=== PATIENT | male | born 1950 | race Caucasian/White ===

== ENCOUNTER 2017-12-14 13:06 | Inpatient (IN) | payer MEDICARE ==
--- NOTE | 2017-12-14 14:12 | ED ---
General Adult HPI <VanJose - Last Filed: 12/14/17 16:48> - General Source: patient, RN notes reviewed Mode of arrival: EMS <Zach Cohen - Last Filed: 12/14/17 16:57> - General Chief complaint: Fall Stated complaint: Fall Time Seen by Provider: 12/14/17 13:30 - History of Present Illness Initial comments: Patient 67-year-old male presented to the emergency room today by EMS, the chief complaint of fall occurred just prior to arrival. He does admit that he was walking out of a store when he got tripped up over his feet lose his balance falling forward and hitting a pole in the parking lot. Patient is with pain to left hip, left shoulder. Patient has mid to headache. He does admit that he is on a blood thinner of Plavix. Patient denies any loss consciousness. He states pain is worse with movements of the left hip, left shoulder. Denies any other complaints. Patient denies any recent fever, chills , shortness of breath, chest pain, back pain, abdominal pain, constipation or diarrhea, visual changes, or any other complaints. (Zach Cohen) - Related Data Home Medications Medication Instructions Recorded Confirmed Atorvastatin Calcium [Lipitor] 40 mg PO HS 12/14/17 12/14/17 Carbidopa-Levodopa 25-100 mg 1 tab PO DAILY@1200 12/14/17 12/14/17 [Sinemet 25-100 mg] Carbidopa-Levodopa 25-100 mg 2 tab PO BID 12/14/17 12/14/17 [Sinemet 25-100 mg] Carvedilol [Coreg] 6.25 mg PO BID 12/14/17 12/14/17 Clopidogrel [Plavix] 75 mg PO DAILY 12/14/17 12/14/17 Gabapentin [Neurontin] 300 mg PO TID 12/14/17 12/14/17 Insulin NPH Hum/Reg Insulin Hm 60 unit SQ BID 12/14/17 12/14/17 [Novolin 70-30 100 Unit/ml Vial] Isosorbide Mononitrate ER [Imdur] 30 mg PO DAILY 12/14/17 12/14/17 Lisinopril [Zestril] 20 mg PO DAILY 12/14/17 12/14/17 Venlafaxine HCl ER [Effexor XR] 75 mg PO HS 12/14/17 12/14/17 Venlafaxine HCl ER [Effexor XR] 150 mg PO QAM 12/14/17 12/14/17 metFORMIN HCL 1,000 mg PO AC-BID 12/14/17 12/14/17 Allergies Allergy/AdvReac Type Severity Reaction Status Date / Time No Known Allergies Allergy Verified 12/14/17 13:46 Review of Systems ROS Other: All systems not noted in ROS Statement are negative. <Jose Van - Last Filed: 12/14/17 16:48> ROS Other: All systems not noted in ROS Statement are negative. <Zach Cohen - Last Filed: 12/14/17 16:57> ROS Statement: Those systems with pertinent positive or pertinent negative responses have been documented in the HPI. Past Medical History Past Medical History: Coronary Artery Disease (CAD), Heart Failure, COPD, Dementia, Diabetes Mellitus, Hearing Disorder / Deafness, Hypertension, Myocardial Infarction ([place]), Sleep Apnea/CPAP/BIPAP Additional Past Medical History / Comment(s): parkinsons History of Any Multi-Drug Resistant Organisms: None Reported Past Surgical History: Coronary Bypass/CABG Past Psychological History: No Psychological Hx Reported Smoking Status: Current every day smoker Past Alcohol Use History: None Reported Past Drug Use History: None Reported <Zach Cohen - Last Filed: 12/14/17 16:57> General Exam <Jose Van - Last Filed: 12/14/17 16:48> <Zach Cohen - Last Filed: 12/14/17 16:57> - General Exam Comments Initial Comments: General: The patient is awake and alert, in no distress, and does not appear acutely ill. Eye: Pupils are equal, round and reactive to light. Extra-ocular movements are intact. No nystagmus. There is normal conjunctiva bilaterally. No signs of icterus. Ears, nose, mouth and throat: There are moist mucous membranes and no oral lesions. Neck: The neck is supple, there is no tenderness or JVD. Cardiovascular: There is a regular rate and rhythm. No murmur, rub or gallop is appreciated. Respiratory: Lungs are clear to auscultation, respirations are non-labored, breath sounds are equal. No wheezes, stridor, rales, or rhonchi. Gastrointestinal: Soft, non-distended, non-tender abdomen without masses or organomegaly noted. There is no rebound or guarding present. No CVA tenderness. Musculoskeletal: Good range of motion of the left shoulder. Mild tenderness over the lateral anterior aspect. The parents elected not obvious deformity. Patient does have tenderness over the lateral aspect. Tenderness increased with logroll maneuver. Sensation intact. Pulses equal bilaterally 2+. Neurological: A&O x 3. CN II-XII intact, There are no obvious motor or sensory deficits. Coordination appears grossly intact. Speech is normal. Skin: Skin is warm and dry and no rashes or lesions are noted. Psychiatric: Cooperative, appropriate mood & affect, normal judgment. (Zach Cohen) Course <Jose Van - Last Filed: 12/14/17 16:48> <Zach Cohen - Last Filed: 12/14/17 16:57> Vital Signs 12/14/17 12/14/17 13:15 15:44 Temperature 97.8 F 97.7 F Pulse Rate 65 59 L Respiratory 18 18 Rate Blood Pressure 122/88 126/64 O2 Sat by Pulse 95 92 L Oximetry - Reevaluation(s) Reevaluation #1: 12/14/17 16:11 Patient reevaluated by myself, Dr. Van. Orthopedics has been paged. Patient did have a trip and fall. Patient has tenderness left anterior hip. Distally the extremity is neurovascular intact. X-ray concerning for femoral neck fracture. (Jose Van) Medical Decision Making - Lab Data Result diagrams: 12/14/17 14:53 12/14/17 14:53 <Jose Van - Last Filed: 12/14/17 16:48> - Lab Data Result diagrams: 12/14/17 14:53 12/14/17 14:53 <Zach Cohen - Last Filed: 12/14/17 16:57> - Medical Decision Making Patient's CT of the head and neck negative for any acute abnormality. Patient' s x-ray of the left shoulder is negative. X-ray of the left hip does show a femoral neck fracture. Patient has no orthopedic doctor. Case was discussed with orthopedic physician plumber assistant on-call Estevan Goddard who will accept patient for Dr. Colin. Patient does have a out of town family physician and will have on-call hospitalist consult for medical clearance for surgery. Patient will be made nothing by mouth after midnight for chance of surgery tomorrow morning. (Zach Cohen) - Lab Data Lab Results 12/14/17 12/14/17 12/14/17 Range/Units 14:53 14:53 14:53 WBC 8.5 (3.8-10.6) k/uL RBC 4.52 (4.30-5.90) m/uL Hgb 13.8 (13.0-17.5) gm/dL Hct 41.4 (39.0-53.0) % MCV 91.7 (80.0-100.0) fL MCH 30.5 (25.0-35.0) pg MCHC 33.2 (31.0-37.0) g/dL RDW 13.4 (11.5-15.5) % Plt Count 233 (150-450) k/uL Neutrophils % 75 % Lymphocytes % 16 % Monocytes % 6 % Eosinophils % 2 % Basophils % 1 % Neutrophils # 6.4 (1.3-7.7) k/uL Lymphocytes # 1.4 (1.0-4.8) k/uL Monocytes # 0.5 (0-1.0) k/uL Eosinophils # 0.2 (0-0.7) k/uL Basophils # 0.0 (0-0.2) k/uL PT 10.1 (9.0-12.0) sec INR 1.0 (<1.2) APTT 24.0 (22.0-30.0) sec Sodium 139 (137-145) mmol/L Potassium 4.0 (3.5-5.1) mmol/L Chloride 105 (98-107) mmol/L Carbon Dioxide 28 (22-30) mmol/L Anion Gap 6 mmol/L BUN 12 (9-20) mg/dL Creatinine 0.58 L (0.66-1.25) mg/dL Est GFR (CKD-EPI)AfAm >90 (>60 ml/min/1.73 sqM) Est GFR (CKD-EPI)NonAf >90 (>60 ml/min/1.73 sqM) Glucose 100 H (74-99) mg/dL Calcium 9.1 (8.4-10.2) mg/dL Total Bilirubin 0.3 (0.2-1.3) mg/dL AST 16 L (17-59) U/L ALT 22 (21-72) U/L Alkaline Phosphatase 76 (38-126) U/L Total Protein 5.9 L (6.3-8.2) g/dL Albumin 3.4 L (3.5-5.0) g/dL Disposition <Jose Van - Last Filed: 12/14/17 16:48> Is patient prescribed a controlled substance at d/c from ED?: No Time of Disposition: 16:57 <Zach Cohen - Last Filed: 12/14/17 16:57> Clinical Impression: Hip fracture, Fall Disposition: ADMITTED IP TO THIS [facility] Condition: Stable Instructions: Hip Fracture (ED) Referrals: None,Stated [REFERRING] - 1-2 days
--- NOTE | 2017-12-14 14:31 | CT ---
EXAMINATION TYPE: CT brain ayanna coleman DATE OF EXAM: 12/14/2017 COMPARISON: None HISTORY: Pain CT DLP: 1364.[address] of the brain was performed. The ventricles, basal cisterns and sulci overlying the cerebral convexities demonstrate mild enlargem ent. There is no evidence for intracranial hemorrhage or sulcal effacement. There is decreased attenuatio n about the periventricular white matter and deep white matter of both cerebral hemispheres, compatib le with chronic small vessel ischemia. No mass effects are seen. If symptoms persist consider MRI. Osseous calvarium is intact. IMPRESSION: 1. Age related atrophic and chronic small vessel ischemic change without acute intracranial process seen at this time. CT Cervical Spine: Unenhanced CT of the cervical spine was performed with bone and soft tissue window settings submitted . Coronal and sagittal reconstruction is obtained. There is normal alignment and prevertebral soft tissues. No evidence for acute cervical fracture . Scattered degenerative disc disease and spondylosis. Biapical scarring. IMPRESSION: 1. No evidence for acute fracture or subluxation of the cervical spine.
[2017-12-14] MEDS ORDERED: SODIUM CHLORIDE 0.9% 1,000 ML IV STA (14:38)
[2017-12-14] MEDS ORDERED: MORPHINE SULFATE 4 MG/ML SYRINGE IV STA (14:39)
[2017-12-14] MEDS ORDERED: ONDANSETRON 4 MG/2 ML VIAL IVP STA (14:39)
--- NOTE | 2017-12-14 14:53 | XR ---
EXAMINATION TYPE: AP view pelvis and 2 views left hip DATE OF EXAM: 12/14/2017 COMPARISON: NONE HISTORY: 67-year-old male pain and limited range of motion after fall FINDINGS: Mild degenerative change of both hips. There is an impacted and mildly angulated and externally rotat ed fracture of the left femoral neck. This appears to be a transcervical fracture versus subcapital f racture. IMPRESSION: Impacted, externally rotated, and slightly angulated subcapital versus transcervical femoral neck fra cture.
--- NOTE | 2017-12-14 14:54 | XR ---
EXAMINATION TYPE: XR shoulder complete LT DATE OF EXAM: 12/14/2017 COMPARISON: NONE HISTORY: 67-year-old male with pain and limited range of motion after fall today TECHNIQUE: 3 views FINDINGS: Mild degenerative joint space narrowing and marginal spurring at the AC joint. Subacromial space is p reserved. No acute fracture, subluxation, or dislocation seen. Median sternotomy wires with post-CABG clips. IMPRESSION: No acute osseous abnormality seen.
[2017-12-14 15:11] LABS: Basophils % (A) 1 %; Eosinophils # (A) 0.2 k/uL (0-0.7); Eosinophils % (A) 2 %; HCT 41.4 % (39.0-53.0); HGB 13.8 gm/dL (13.0-17.5); Lymphocytes # (A) 1.4 k/uL (1.0-4.8); Lymphocytes % (A) 16 %; MCH 30.5 pg (25.0-35.0); MCHC 33.2 g/dL (31.0-37.0); MCV 91.7 fL (80.0-100.0); Mean Platelet Volume 6.8; Monocytes # (A) 0.5 k/uL (0-1.0); Monocytes % (A) 6 %; Neutrophils # (A) 6.4 k/uL (1.3-7.7); Neutrophils % (A) 75 %; Platelet Count 233 k/uL (150-450); RBC 4.52 m/uL (4.30-5.90); RDW 13.4 % (11.5-15.5); WBC 8.5 k/uL (3.8-10.6)
[2017-12-14 15:20] LABS: Prothrombin Time 10.1 sec (9.0-12.0)
[2017-12-14 15:21] LABS: ALT 22 U/L (21-72); AST 16 U/L (17-59); Albumin 3.4 g/dL (3.5-5.0); Alkaline Phosphatase 76 U/L (38-126); Anion Gap 6 mmol/L; Blood Urea Nitrogen 12 mg/dL (9-20); Calcium 9.1 mg/dL (8.4-10.2); Carbon Dioxide 28 mmol/L (22-30); Chloride 105 mmol/L (98-107); Glucose 100 mg/dL (74-99); Sodium 139 mmol/L (137-145); Total Bilirubin 0.3 mg/dL (0.2-1.3); Total Protein 5.9 g/dL (6.3-8.2)
--- NOTE | 2017-12-14 15:28 | XR ---
EXAMINATION TYPE: XR chest 1V DATE OF EXAM: 12/14/2017 COMPARISON: 04/14/2012 HISTORY: -year-old male with pain in left hip fracture TECHNIQUE: Single frontal view of the chest is obtained. FINDINGS: Heart upper limits of normal in size. Median sternotomy wires are present with post-CABG clips in the mediastinum. Focal left basilar opacity was present back in 2013. Mild diffuse interstitial prominen ce is unchanged. No significant pleural effusion seen. IMPRESSION: Stable pleural parenchymal opacity at the left base as compared to 2013 suggests prominent pleural pa renchymal scarring. An underlying acute infiltrate would be difficult to exclude. Correlation will be needed with patient's symptoms.
[2017-12-14] MEDS ORDERED: HYDROmorphone 1 MG/ML 1 ML SYRINGE IVP PRN (16:58)
[2017-12-14] MEDS ORDERED: SODIUM CHLORIDE 0.9% 1,000 ML IV ONE (16:58)
[2017-12-14] MEDS ORDERED: ONDANSETRON 4 MG/2 ML VIAL IVP PRN (16:58)
[2017-12-14] MEDS ORDERED: HYDROcodone/APAP 5-325MG 1 EACH TAB PO PRN (16:58)
[2017-12-14] MEDS ORDERED: ACETAMINOPHEN TAB 325 MG TAB PO PRN (16:58)
[2017-12-14] MEDS ORDERED: NALOXONE 0.4 MG/ML 1 ML VIAL IV PRN (16:58)
[2017-12-14] MEDS ORDERED: NICOTINE 14MG/24HR PATCH TRANSDERM STA (17:36)
[2017-12-14] MEDS: MORPHINE SULFATE 4 MG/ML SYRINGE IV PRN (19:23)
[2017-12-14] MEDS: CARVEDILOL 6.25 MG TAB PO SCH (19:50)
[2017-12-14] MEDS: GABAPENTIN 300 MG CAP PO SCH (19:50)
[2017-12-14] MEDS: VENLAFAXINE HCL ER 75 MG CAP PO SCH (19:50)
[2017-12-14] MEDS: INSULIN ASPART 100 UNIT/ML 1 ML 10 ML VIAL SQ SCH (20:01)
[2017-12-14] MEDS ORDERED: ceFAZolin IN SWFI 2 GM/20 ML SYRINGE IVP ONE (20:54)
--- NOTE | 2017-12-14 21:17 | P.CONS ---
History of Present Illness - Reason for Consult Consult date: 12/14/17 Medical clearance Requesting physician: Matias Ospina - Chief Complaint Left hip pain - History of Present Illness 65-year-old male with PMH of Parkinson's disease, CAD s/p CABG, diabetes mellitus, hypertension, depression presents to the ED with left hip pain. Patient reports being in the store, walking out of the entrance, when he got tripped up and lost his balance falling towards the left side. Patient denies any LOC. Patient reported 10 out of 10 left hip pain at that time, with no other symptoms. He reports weakness, but no numbness or tingling of the left lower extremity. Patient currently complains of 5-6 out of 10 pain, worse with exertion and movement. Of note, patient reports unstable gait and wobbliness when ambulating at home, attributes this to Parkinson's disease. He ambulates with a cane and a walker. He denies any exertional shortness of breath or PND, but endorses lower extremity swelling on occasion. He denies headache, nausea, vomiting, fever, cough, chest pain, shortness of breath, changes in appetite or bowel habits. Patient does endorse chronic urinary issues, difficulty initiating a stream. He denies dysuria or hematuria. Patient reports undergoing CABG for triple-vessel disease around 4 months ago at [facility] after a positive stress test with his PCP. Patient also states that he had a stress test 2-3 weeks ago at [facility], was told it was normal. He is on DAPT with Plavix and ASA. Patient underwent extensive imaging in the ED. CT head and neck was negative for any acute process area. Hip x-ray shows an externally rotated and slightly angulated subcapital versus transcervical femoral neck fracture. EKG shows normal sinus rhythm with RBBB and T-wave abnormalities. CBC was negative. Coags were negative. CMP shows glucose of 100, albumin at 3.4. Patient is admitted under orthopedic surgery for possible surgical intervention. Medicine on consult for preoperative clearance. Review of Systems All systems: negative Past Medical History Past Medical History: Coronary Artery Disease (CAD), Heart Failure, COPD, Dementia, Diabetes Mellitus, Hearing Disorder / Deafness, Hypertension, Myocardial Infarction ([place]), Sleep Apnea/CPAP/BIPAP Additional Past Medical History / Comment(s): parkinsons History of Any Multi-Drug Resistant Organisms: None Reported Past Surgical History: Coronary Bypass/CABG Past Psychological History: No Psychological Hx Reported Smoking Status: Current every day smoker Past Alcohol Use History: None Reported Past Drug Use History: None Reported Medications and Allergies Home Medications Medication Instructions Recorded Confirmed Type Atorvastatin Calcium [Lipitor] 40 mg PO HS 12/14/17 12/14/17 History Carbidopa-Levodopa 25-100 mg 1 tab PO DAILY@1200 12/14/17 12/14/17 History [Sinemet 25-100 mg] Carbidopa-Levodopa 25-100 mg 2 tab PO BID 12/14/17 12/14/17 History [Sinemet 25-100 mg] Carvedilol [Coreg] 6.25 mg PO BID 12/14/17 12/14/17 History Clopidogrel [Plavix] 75 mg PO DAILY 12/14/17 12/14/17 History Gabapentin [Neurontin] 300 mg PO TID 12/14/17 12/14/17 History Insulin NPH Hum/Reg Insulin Hm 60 unit SQ BID 12/14/17 12/14/17 History [Novolin 70-30 100 Unit/ml Vial] Isosorbide Mononitrate ER [Imdur] 30 mg PO DAILY 12/14/17 12/14/17 History Lisinopril [Zestril] 20 mg PO DAILY 12/14/17 12/14/17 History Venlafaxine HCl ER [Effexor XR] 75 mg PO HS 12/14/17 12/14/17 History Venlafaxine HCl ER [Effexor XR] 150 mg PO QAM 12/14/17 12/14/17 History metFORMIN HCL 1,000 mg PO AC-BID 12/14/17 12/14/17 History Allergies Allergy/AdvReac Type Severity Reaction Status Date / Time No Known Allergies Allergy Verified 12/14/17 13:46 Physical Exam Vitals: Vital Signs Temp Pulse Resp BP Pulse Ox 12/14/17 17:49 97.6 F 68 18 134/55 91 L 12/14/17 15:44 97.7 F 59 L 18 126/64 92 L 12/14/17 13:15 97.8 F 65 18 122/88 95 Intake and Output 12/14/17 12/14/17 12/14/17 06:59 14:59 22:59 Other: Weight 101.605 kg General: [non toxic], [no distress], [appears at stated age] Derm: [warm], [dry] Head: [atraumatic], [normocephalic], [symmetric] Eyes: [EOMI], [no lid lag], [anicteric sclera] Mouth: [no lip lesion], [mucus membranes moist] Cardiovascular: [S1S2 reg], [no murmur], [positive DP pulse bilateral] Lungs: [CTA bilateral], [no rhonchi, no rales] , [no accessory muscle use] Abdominal: [soft], [ nontender to palpation], [no guarding], [no appreciable organomegaly] Ext: [no gross muscle atrophy], [no edema], [no contractures], [left lower extremity with tenderness to palpation and limited ROM due to pain] Neuro: [ CN II-XI grossly intact except for hearing], [LLE weakness due to pain] Psych: [Alert], [oriented], [appropriate affect] Results CBC & Chem 7: 12/14/17 14:53 12/14/17 14:53 Labs: Abnormal Lab Results - Last 24 Hours (Table) 12/14/17 Range/Units 14:53 Creatinine 0.58 L (0.66-1.25) mg/dL Glucose 100 H (74-99) mg/dL AST 16 L (17-59) U/L Total Protein 5.9 L (6.3-8.2) g/dL Albumin 3.4 L (3.5-5.0) g/dL Chest x-ray: report reviewed (negative for acute changes) CT Scan - head: report reviewed (negative for acute changes) Assessment and Plan Assessment: Assessment and Plan 1. Acute subcapital vs. transcervical femoral neck Fx: Seen on XR. 2/ Mechanical fall. Ortho onboard. Pain management Tylenol, [place] and Morphine IV PRN. Will give Cefazolin 2g IV x 1. Palacios score 3.19%. Patient reports undergoing CABG 4 months ago, not ideal candidate for surgery. We'll need to obtain records from [place] regarding CABG and most recent stress test. NPO for possible intervention. FU PT/OT, vit D, Ortho Sx, Echocardiogram, Cardiology consult 2. CAD: s/p CABG per patient 4 mo ago. Hold ASA and Plavix due to need for Sx. Continue Coreg 6.25 mg PO BID and Lisinopril 20 mg PO QD. Obtain CABG and most recent stress test records. FU Echocardiogram, Telemetry monitoring. 3. DM: POC glucose 100. Hold home dose of 70:30 insulin. ISS while in house. Regular accuchecks. Hypoglycemic precautions. FU A1c 4. Parkinson's: Stable. Takes Carbidopa-Levodopa 25-100 mg. Unsure of home dose , will re-start in the AM. 5. HTN: BP 134/55. Continue Coreg, Lisinopril and Imdur 30 mg PO QD. Monitor vitals, adjust medication as necessary. 6. Peripheral neuropathy: Due to DM. Continue Gabapentin 300 mg PO TID. 7. Depression: Continue Effexor 150 mg PO QAM, 75 mg PO QHS. 8. DVT Prophylaxis: Hold AC due to need for Sx. Patient high risk for surgery, though benefits outweigh risks. Plavix should be held for 5-7 days prior to nonemergent surgery, however this is emergent surgery, he will have an increased risk of bleed. We'll need to get records from [facility] regarding his CABG stress test 2-3 weeks ago. Follow-up echocardiogram. Follow-up cardiology consultation.
[2017-12-14] MEDS: ATORVASTATIN 40 MG TAB PO SCH (21:29)
[2017-12-15] MEDS: MORPHINE SULFATE 4 MG/ML SYRINGE IV PRN ×3 (00:59→23:33)
[2017-12-15 04:21] LABS: Hemoglobin A1C 11.7 % (4.0-6.0)
[2017-12-15 05:00] VITALS: BMI 29.5
[2017-12-15 07:01] LABS: Glucose,Whole Blood 172 mg/dL (75-99)
[2017-12-15 08:05] LABS: Basophils # (A) 0.1 k/uL (0-0.2); Basophils % (A) 1 %; Eosinophils # (A) 0.2 k/uL (0-0.7); Eosinophils % (A) 2 %; HCT 45.4 % (39.0-53.0); HGB 15.3 gm/dL (13.0-17.5); Lymphocytes # (A) 1.1 k/uL (1.0-4.8); Lymphocytes % (A) 9 %; MCH 30.8 pg (25.0-35.0); MCHC 33.7 g/dL (31.0-37.0); MCV 91.2 fL (80.0-100.0); Mean Platelet Volume 7.2; Monocytes # (A) 0.8 k/uL (0-1.0); Monocytes % (A) 6 %; Neutrophils # (A) 10.6 k/uL (1.3-7.7); Neutrophils % (A) 82 %; Platelet Count 221 k/uL (150-450); RBC 4.98 m/uL (4.30-5.90); RDW 13.5 % (11.5-15.5); WBC 12.9 k/uL (3.8-10.6)
[2017-12-15 08:25] LABS: Albumin 3.2 g/dL (3.5-5.0); Anion Gap 9 mmol/L; Calcium 8.8 mg/dL (8.4-10.2); Carbon Dioxide 24 mmol/L (22-30); Chloride 107 mmol/L (98-107); Glucose 182 mg/dL (74-99); Sodium 140 mmol/L (137-145); Total Bilirubin 0.7 mg/dL (0.2-1.3); Total Protein 5.8 g/dL (6.3-8.2)
[2017-12-15 08:28] LABS: Blood Urea Nitrogen 12 mg/dL (9-20); Potassium 4.3 mmol/L (3.5-5.1)
[2017-12-15 08:29] LABS: ALT 16 U/L (21-72); AST 18 U/L (17-59); Alkaline Phosphatase 66 U/L (38-126)
[2017-12-15] MEDS: LISINOPRIL 20 MG TAB PO SCH (08:55)
[2017-12-15] MEDS: ISOSORBIDE MONONITRATE ER 30 MG TAB.ER.24H PO SCH (08:55)
[2017-12-15] MEDS: VENLAFAXINE HCL ER 150 MG CAP PO SCH (08:56)
[2017-12-15] MEDS: GABAPENTIN 300 MG CAP PO SCH ×3 (08:56→21:43)
[2017-12-15] MEDS: CARVEDILOL 6.25 MG TAB PO SCH ×2 (08:57→17:38)
[2017-12-15] MEDS: INSULIN ASPART 100 UNIT/ML 1 ML 10 ML VIAL SQ SCH ×4 (08:58→21:43)
--- NOTE | 2017-12-15 09:45 | ECHOF ---
Referral Reason:pre-op clearance MEASUREMENTS -------- HEIGHT: 180.3 cm WEIGHT: 101.6 kg BP: 158/74 IVSd: 1.6 cm (0.6 - 1.1) LVIDd: 4.5 cm (3.9 - 5.3) LVPWd: 1.6 cm (0.6 - 1.1) IVSs: 1.9 cm LVIDs: 2.3 cm LVPWs: 2.4 cm Ao Diam: 3.7 cm (2.0 - 3.7) AV Cusp: 2.3 cm (1.5 - 2.6) LA Diam: 3.2 cm (2.7 - 3.8) MV EXCURSION: 15.271 mm (> 18.000) MV EF SLOPE: 46 mm/s (70 - 150) EPSS: 0.9 cm MV E Anatoliy: 0.70 m/s MV DecT: 180 ms MV A Anatoliy: 0.89 m/s MV E/A Ratio: 0.79 RAP: 5.00 mmHg RVSP: 9.79 mmHg FINDINGS -------- Sinus rhythm. This was a technically difficult study with suboptimal views. The left ventricular size is normal. There is moderate concentric left ventricular hypertrophy. O verall left ventricular systolic function is normal with, an EF between 55 - 60 %. The right ventricle is normal in size and function. The left atrium is normal in size. The right atrium is normal in size. Lumason used The aortic valve is trileaflet, and appears structurally normal. No aortic stenosis or regurgitation. There is trace mitral regurgitation. Trace tricuspid regurgitation present. The right ventricular systolic pressure, as measured by Dopp ler, is 9.79mmHg. Pulmonic valve appears structurally normal. The aortic root size is normal. The pericardium is normal. CONCLUSIONS -------- 1. Sinus rhythm. 2. This was a technically difficult study with suboptimal views. 3. The left ventricular size is normal. 4. There is moderate concentric left ventricular hypertrophy. 5. Overall left ventricular systolic function is normal with, an EF between 55 - 60 %. 6. The right ventricle is normal in size and function. 7. The left atrium is normal in size. 8. The right atrium is normal in size. 9. Lumason used 10. The aortic valve is trileaflet, and appears structurally normal. No aortic stenosis or regurgitat ion. 11. There is trace mitral regurgitation. 12. Trace tricuspid regurgitation present. 13. The right ventricular systolic pressure, as measured by Doppler, is 9.79mmHg. 14. Pulmonic valve appears structurally normal. 15. The aortic root size is normal. 16. The pericardium is normal. MANAGER WELLNESS: Daniela Vasquez RDCS
--- NOTE | 2017-12-15 10:06 | P.HPOR ---
History of Present Illness H&P Date: 12/15/17 Chief Complaint: Left femoral neck fracture Patient is a 67-year-old male who was brought to [facility] yesterday afternoon. Patient sustained a fall in the parking lot [employer] [place]. He tripped and fell on his left side. He was unable to weight-bear, EMS brought patient to the hospital. Upon arrival to the hospital, imaging and lab tests were done. Images demonstrated impacted left femoral neck fracture. Patient had a substantial imaging workup due to the fact he is on blood thinners. Remaining imaging test were negative. I was contacted via the emergency room staff, the case was discussed. I was able to discuss the case with my attending physician Dr. Ospina. Plan is for admission under our care, with proper medical office professional instructor consults clearances for likely surgery. Patient was evaluated this morning at bedside, is resting comfortably. He notes discomfort in the left groin with movement. He denies any acute pain involving the right lower extremity, bilateral upper extremities, new onset cervical, thoracic or lumbar pain. Patient is a relatively complex medical history, this including Parkinson's, history of CABG procedure, medical H&P demonstrates this surgery in the last 6 months, patient states that it was many years ago. They are obtaining his old records, including most recent stress test results. He also has a history of diabetes. Review of Systems Constitutional: Reports as per HPI Past Medical History Past Medical History: Coronary Artery Disease (CAD), Heart Failure, COPD, Dementia, Diabetes Mellitus, Hearing Disorder / Deafness, Hypertension, Myocardial Infarction (ND), Sleep Apnea/CPAP/BIPAP Additional Past Medical History / Comment(s): parkinsons Last Myocardial Infarction Date:: unk History of Any Multi-Drug Resistant Organisms: None Reported Past Surgical History: Coronary Bypass/CABG Past Psychological History: No Psychological Hx Reported Smoking Status: Current every day smoker Past Alcohol Use History: None Reported Past Drug Use History: None Reported - Past Family History Father Family Medical History: Hypertension Medications and Allergies Home Medications Medication Instructions Recorded Confirmed Type Atorvastatin Calcium [Lipitor] 40 mg PO HS 12/14/17 12/14/17 History Carbidopa-Levodopa 25-100 mg 1 tab PO DAILY@1200 12/14/17 12/14/17 History [Sinemet 25-100 mg] Carbidopa-Levodopa 25-100 mg 2 tab PO BID 12/14/17 12/14/17 History [Sinemet 25-100 mg] Carvedilol [Coreg] 6.25 mg PO BID 12/14/17 12/14/17 History Clopidogrel [Plavix] 75 mg PO DAILY 12/14/17 12/14/17 History Gabapentin [Neurontin] 300 mg PO TID 12/14/17 12/14/17 History Insulin NPH Hum/Reg Insulin Hm 60 unit SQ BID 12/14/17 12/14/17 History [Novolin 70-30 100 Unit/ml Vial] Isosorbide Mononitrate ER [Imdur] 30 mg PO DAILY 12/14/17 12/14/17 History Lisinopril [Zestril] 20 mg PO DAILY 12/14/17 12/14/17 History Venlafaxine HCl ER [Effexor XR] 75 mg PO HS 12/14/17 12/14/17 History Venlafaxine HCl ER [Effexor XR] 150 mg PO QAM 12/14/17 12/14/17 History metFORMIN HCL 1,000 mg PO AC-BID 12/14/17 12/14/17 History Allergies Allergy/AdvReac Type Severity Reaction Status Date / Time No Known Allergies Allergy Verified 12/14/17 13:46 Physical Examination Left lower extremity: No obvious malformation noted of the lower extremity. Logroll maneuver reproduces pain, he is unable to straight leg raise. No obvious open lesions or sores are present throughout the extremity. No obvious effusion present over the knee. He is nontender with palpation around the knee, also including foot and ankle. Calf is soft soft, no tenderness with palpation. Dorsal pedis pulses 2+. Obvious sensory defect to light touch on plantar aspect left foot Right lower extremity: Logroll maneuver of the extremity reveals no pain, he is able to straight leg raise. His range of motion is intact at the knee. No effusion present over the knee. No pain or tenderness surrounding the knee or foot or ankle. Sensation is diminished on the plantar aspect of the foot, his dorsalis pedis pulses 2+. Calf is soft, no tenderness with palpation. Results - Labs Labs: Abnormal Lab Results - Last 24 Hours (Table) 12/14/17 12/14/17 12/14/17 Range/Units 14:53 14:53 14:53 WBC (3.8-10.6) k/uL Neutrophils # (1.3-7.7) k/uL Creatinine 0.58 L (0.66-1.25) mg/dL Glucose 100 H (74-99) mg/dL POC Glucose (mg/dL) (75-99) mg/dL Hemoglobin A1c 11.7 H (4.0-6.0) % AST 16 L (17-59) U/L ALT (21-72) U/L Total Protein 5.9 L (6.3-8.2) g/dL Albumin 3.4 L (3.5-5.0) g/dL Vitamin D 25-Hydroxy 20.8 L (30.0-100.0) ng/mL 12/15/17 12/15/17 12/15/17 Range/Units 07:00 07:36 07:36 WBC 12.9 H (3.8-10.6) k/uL Neutrophils # 10.6 H (1.3-7.7) k/uL Creatinine 0.62 L (0.66-1.25) mg/dL Glucose 182 H (74-99) mg/dL POC Glucose (mg/dL) 172 H (75-99) mg/dL Hemoglobin A1c (4.0-6.0) % AST (17-59) U/L ALT 16 L (21-72) U/L Total Protein 5.8 L (6.3-8.2) g/dL Albumin 3.2 L (3.5-5.0) g/dL Vitamin D 25-Hydroxy (30.0-100.0) ng/mL H & H 12/14/17 12/15/17 Range/Units 14:53 07:36 Hgb 13.8 15.3 (13.0-17.5) gm/dL Hct 41.4 45.4 (39.0-53.0) % Coagulation 12/14/17 Range/Units 14:53 INR 1.0 (<1.2) Result Diagrams: 12/15/17 07:36 12/15/17 07:36 - Diagnostic results Hip x-ray: report reviewed, image reviewed Assessment and Plan Plan: Imaging: Pelvis x-rays demonstrated an impacted left femoral neck fracture. X-rays of the shoulder revealed no obvious fractures or dislocations. Evidence of a high riding humeral head, this could represent a chronic rotator cuff problem. Assessment: 1. Left femoral neck fracture 2. Status post fall from standing 3. Other medical comorbidities Plan: I was able to discuss the case, including the physical exam findings and imaging studies with maintaining Dr. Ospina. Plan at this time will be to proceed with surgery, this will either be a hemiarthroplasty involving the left hip or left total hip arthroplasty. Patient is anticoagulated with Plavix due to previous heart surgery. We will not be able to do a spinal, this will likely be a general anesthetic. Timing for procedure will be discussed with surgeon and anesthesia. Case was discussed patient, including treatment options. Advised to him that I will contact his and discussed the case also. Obtain consent Nonweightbearing left lower extremity Pain control Urinary catheter placement GI and DVT prophylaxis, hold Plavix at this time. We'll resume after surgery NPO night before surgery Medical clearances Further recommendations to follow Time with Patient: Less than 30
[2017-12-15 11:19] LABS: Glucose,Whole Blood 204 mg/dL (75-99)
[2017-12-15 12:27] LABS: Appearance,Urine Clear (Clear); Bacteria,Urine Rare /hpf; Bilirubin,Urine Negative (Negative); Blood,Urine Small (Negative); Color,Urine Yellow; Glucose,Urine (UA) 4+ (Negative); Ketones,Urine 1+ (Negative); Leukocyte Esterase,Urine Moderate (Negative); Mucus,Urine Rare /hpf; Nitrite,Urine Negative (Negative); Protein,Urine 2+ (Negative); RBC,Urine 2 /hpf (0-5); Specific Gravity,Urine 1.021 (1.001-1.035); Squamous Epithelial Cell,Urine 1 /hpf (0-4)
--- NOTE | 2017-12-15 13:49 | P.CRDCN ---
History of Present Illness History of present illness: Mr Flores is seen and examined resting comfortably in bed. Past medical history significant for coronary artery disease s/p bypass grafting with SVG-diag, SVG- OM, SVG-PLV & GARCIA-LAD. He also has history of ischemic cardiomyopathy, chronic systolic heart failure, hypertension, COPD, Parkinson's disease, diabetes mellitus, dementia and chronic nicotine dependence. He follows with a wallpaperer out of [place], Dr. Rodriguez. We have been asked to see him in consultation for pre-operative evaluation s/p fall and fracture of the left femoral neck. He states he fell from standing while in the parking lot at a local store. He denies having any dizziness, chest pain, palpitations, nausea, vomiting or diaphoresis prior to falling he states that he tripped and fell. He was recently in the hospital here, those records were reviewed. At that time he underwent cardiac evaluation for symptoms of dizziness. He underwent an echocardiogram which revealed preserved left ventricular systolic function with ejection fraction 55%, grade 2 diastolic dysfunction and no valvular abnormalities were noted. He also did a Lexiscan stress test which is not included in the record. He did undergo a TERE in 2016 which revealed an ejection fraction of 45-50%. He also underwent a cardiac catheterization in 2016 and at that time he had patent grafts and an attempt was made to open the chronically occluded OM which was unsuccessful at that time. He was started on Plavix. EKG reveals sinus mechanism with right bundle branch block pattern, left axis deviation and T-wave inversions noted in the precordial leads. Chest x-ray reviewed, stable pleural parenchymal opacity at the left lung base suggesting a prominent pleuroparenchymal scarring. Laboratory data reviewed, WBC 12.9, hemoglobin 15.3, platelets 221, sodium 140, potassium 4.3, creatinine 0.62. Current cardiac medications include lisinopril 20 mg daily, Plavix 75 mg daily, carvedilol 6.25 mg twice a day, atorvastatin 40 mg daily and Imdur 30 mg daily. He also takes Sinemet, Effexor, Neurontin, insulin and metformin. Review of Systems At the time of my exam: CONSTITUTIONAL: Denies fever. Denies chills. EYES: Denies blurred vision. Denies vision changes. Denies eye pain. EARS, NOSE, MOUTH & THROAT: Denies headache. Denies sore throat. Denies ear pain. CARDIOVASCULAR: Denies chest pain. Denies shortness of breath. Denies orthopnea. Denies PND. Denies palpitations. RESPIRATORY: Denies cough. GASTROINTESTINAL: Denies abdominal pain. Denies diarrhea. Denies constipation. Denies nausea. Denies vomiting. MUSCULOSKELETAL: Complains of pain to the left hip and leg. INTEGUMENTARY: Denies pruitis. Denies rash. NEUROLOGIC: Denies numbness. Denies tingling. Denies weakness. PSYCHIATRIC: Denies anxiety. Denies depression. ENDOCRINE: Denies fatigue. Denies weight change. Denies polydipsia. Denies polyurina. GENITOURINARY: Denies burning, hematuria or urgency with micturation. HEMATOLOGIC: Denies history of anemia. Denies bleeding. Past Medical History Past Medical History: Coronary Artery Disease (CAD), Heart Failure, COPD, Dementia, Diabetes Mellitus, Hearing Disorder / Deafness, Hypertension, Myocardial Infarction (ME), Sleep Apnea/CPAP/BIPAP Additional Past Medical History / Comment(s): parkinsons Last Myocardial Infarction Date:: unk History of Any Multi-Drug Resistant Organisms: None Reported Past Surgical History: Coronary Bypass/CABG Past Psychological History: No Psychological Hx Reported Smoking Status: Current every day smoker Past Alcohol Use History: None Reported Past Drug Use History: None Reported - Past Family History Father Family Medical History: Hypertension Medications and Allergies Home Medications Medication Instructions Recorded Confirmed Type Atorvastatin Calcium [Lipitor] 40 mg PO HS 12/14/17 12/14/17 History Carbidopa-Levodopa 25-100 mg 1 tab PO DAILY@1200 12/14/17 12/14/17 History [Sinemet 25-100 mg] Carbidopa-Levodopa 25-100 mg 2 tab PO BID 12/14/17 12/14/17 History [Sinemet 25-100 mg] Carvedilol [Coreg] 6.25 mg PO BID 12/14/17 12/14/17 History Clopidogrel [Plavix] 75 mg PO DAILY 12/14/17 12/14/17 History Gabapentin [Neurontin] 300 mg PO TID 12/14/17 12/14/17 History Insulin NPH Hum/Reg Insulin Hm 60 unit SQ BID 12/14/17 12/14/17 History [Novolin 70-30 100 Unit/ml Vial] Isosorbide Mononitrate ER [Imdur] 30 mg PO DAILY 12/14/17 12/14/17 History Lisinopril [Zestril] 20 mg PO DAILY 12/14/17 12/14/17 History Venlafaxine HCl ER [Effexor XR] 75 mg PO HS 12/14/17 12/14/17 History Venlafaxine HCl ER [Effexor XR] 150 mg PO QAM 12/14/17 12/14/17 History metFORMIN HCL 1,000 mg PO AC-BID 12/14/17 12/14/17 History Allergies Allergy/AdvReac Type Severity Reaction Status Date / Time No Known Allergies Allergy Verified 12/14/17 13:46 Physical Exam Vitals: Vital Signs Temp Pulse Pulse Pulse Resp BP BP 12/15/17 12:18 98.2 F 18 140/63 12/15/17 06:15 98.2 F 78 18 158/74 12/15/17 00:00 18 12/14/17 20:50 98 F 65 18 139/73 12/14/17 17:49 97.6 F 68 18 134/55 12/14/17 15:44 97.7 F 59 L 18 126/64 Pulse Ox 12/15/17 12:18 12/15/17 06:15 92 L 12/15/17 00:00 12/14/17 20:50 90 L 12/14/17 17:49 91 L 12/14/17 15:44 92 L Intake and Output 12/14/17 12/15/17 12/15/17 22:59 06:59 14:59 Intake Total 660 600 Balance 660 600 Intake: Intake, IV Titration 300 600 Amount Sodium Chloride 0.9% 1, 300 600 000 ml @ 75 mls/hr IV . [id number] ONE Rx#:[id number] Oral 360 Other: Voiding Method Urinal Weight 101.605 kg 101.605 kg Blood pressure 140/63 heart rate 78 afebrile maintaining oxygen saturation on nasal cannula GENERAL: This is a 67-year-old male in no apparent distress at the time of my examination. HEENT: Head is atraumatic, normocephalic. Pupils are equal, round. Sclerae anicteric. Conjunctivae are clear. Mucous membranes of the mouth are moist. Neck is supple. There is no jugular venous distention. No carotid bruit is heard. LUNGS: Clear to auscultation no wheezes, rales or rhonchi. No chest wall tenderness is noted on palpation or with deep breathing. Diminished bilaterally. HEART: Regular rate and rhythm without murmurs, rubs or gallops. S1 and S2 heard. ABDOMEN: Soft, nontender. Bowel sounds are heard. No organomegaly noted. EXTREMITIES: No evidence of peripheral edema and no calf tenderness noted. VASCULAR: Radial and dorsalis pedis pulses palpated, no evidence of clubbing. NEUROLOGIC: Patient is awake, alert and oriented x3. Results 12/15/17 07:36 12/15/17 07:36 Cardiac Enzymes 12/14/17 12/15/17 Range/Units 14:53 07:36 AST 16 L 18 (17-59) U/L Coagulation 12/14/17 Range/Units 14:53 PT 10.1 (9.0-12.0) sec APTT 24.0 (22.0-30.0) sec CBC 12/14/17 12/15/17 Range/Units 14:53 07:36 WBC 8.5 12.9 H (3.8-10.6) k/uL RBC 4.52 4.98 (4.30-5.90) m/uL Hgb 13.8 15.3 (13.0-17.5) gm/dL Hct 41.4 45.4 (39.0-53.0) % Plt Count 233 221 (150-450) k/uL Comprehensive Metabolic Panel 12/14/17 12/15/17 Range/Units 14:53 07:36 Sodium 139 140 (137-145) mmol/L Potassium 4.0 4.3 (3.5-5.1) mmol/L Chloride 105 107 (98-107) mmol/L Carbon Dioxide 28 24 (22-30) mmol/L BUN 12 12 (9-20) mg/dL Creatinine 0.58 L 0.62 L (0.66-1.25) mg/dL Glucose 100 H 182 H (74-99) mg/dL Calcium 9.1 8.8 (8.4-10.2) mg/dL AST 16 L 18 (17-59) U/L ALT 22 16 L (21-72) U/L Alkaline Phosphatase 76 66 (38-126) U/L Total Protein 5.9 L 5.8 L (6.3-8.2) g/dL Albumin 3.4 L 3.2 L (3.5-5.0) g/dL Current Medications Generic Name Dose Route Start Last Admin Trade Name Freq PRN Reason Stop Dose Admin Acetaminophen 650 mg 12/14/17 16:58 Tylenol Tab PO Q6HR PRN Mild Pain or Fever > 100.5 Hydrocodone Bitart/Acetaminophen 1 each 12/14/17 16:58 12/15/17 11:11 [place] 5-325 PO 1 each Q4HR PRN Administration Moderate Pain Atorvastatin Calcium 40 mg 12/14/17 21:00 12/14/17 21:29 Lipitor PO 40 mg HS MARVA Administration Carvedilol 6.25 mg 12/14/17 21:00 12/15/17 08:57 Coreg PO 6.25 mg BID-W/MEALS MARVA Administration Gabapentin 300 mg 12/14/17 22:00 12/15/17 08:56 Neurontin PO 300 mg TID MARVA Administration Insulin Aspart 0 unit 12/14/17 21:00 12/15/17 13:05 Novolog SQ 2 unit ACHS MARVA Administration Protocol Isosorbide Mononitrate 30 mg 12/15/17 09:00 12/15/17 08:55 Imdur PO 30 mg DAILY MARVA Administration Lisinopril 20 mg 12/15/17 09:00 12/15/17 08:55 Zestril PO 20 mg DAILY MARVA Administration Morphine Sulfate 4 mg 12/14/17 16:58 12/15/17 09:00 Morphine Sulfate (Inj) IV 4 mg Q4HR PRN Administration Severe Pain Naloxone HCl 0.2 mg 12/14/17 16:58 Narcan IV Q2M PRN Opioid Reversal Ondansetron HCl 4 mg 12/14/17 16:58 Zofran IVP Q8HR PRN Nausea And Vomiting Venlafaxine HCl 75 mg 12/14/17 21:00 12/14/17 19:50 Effexor Xr PO 75 mg HS MARVA Administration Venlafaxine HCl 150 mg 12/15/17 09:00 12/15/17 08:56 Effexor Xr PO 150 mg QAM MARVA Administration Intake and Output 12/14/17 12/15/17 12/15/17 22:59 06:59 14:59 Intake Total 660 600 Balance 660 600 Intake: Intake, IV Titration 300 600 Amount Sodium Chloride 0.9% 1, 300 600 000 ml @ 75 mls/hr IV . [id number] ONE Rx#:[id number] Oral 360 Other: Voiding Method Urinal Weight 101.605 kg 101.605 kg Patient Weight 12/16/17 06:59 Weight 101.605 kg 12/15/17 07:36 12/15/17 07:36 Assessment and Plan Assessment: ASSESSMENT Mechanical fall from standing resulting an impacted left femoral neck fracture History of coronary artery disease status post bypass grafting, maintained on Plavix Chronic systolic and diastolic heart failure, currently euvolemic Hypertension Dyslipidemia Diabetes mellitus COPD Chronic nicotine dependence PLAN Hold Plavix. Last dose yesterday (12/14). Plavix will require 5 days to fully clear from the system. Obtain Lexiscan stress test report from prior hospitalization and appeared. Echocardiogram has been reviewed. No symptoms suggestive of angina or evidence of fluid overload. He is an acceptable but high risk candidate for surgical intervention secondary to multiple comorbid conditions. Continue with beta blockers, HE inhibitor and long-acting nitrate. Maintain blood pressure throughout the procedure while using cautious fluid administration. Thank you kindly for this consultation. Nurse Practitioner note has been reviewed, I agree with a documented findings and plan of care. Patient was seen and examined.
[2017-12-15 17:23] LABS: Glucose,Whole Blood 239 mg/dL (75-99)
--- NOTE | 2017-12-15 19:45 | P.PN ---
Subjective Progress Note Date: 12/15/17 The patient was seen and examined at the bedside. The patient complained of continued left sided hip pain, 6/, without radiation, exacerbated by movement and alleviated with rest. He otherwise denied any chest pain, cough, fever, chills, shortness of breath, nausea, vomiting, diarrhea, or dizziness. Objective - Vital Signs Vital signs: Vital Signs Temp 97.6 F 12/15/17 14:49 Pulse 78 12/15/17 14:49 Resp 16 12/15/17 14:49 BP 143/67 12/15/17 14:49 Pulse Ox 96 12/15/17 14:49 Intake & Output 12/15/17 12/15/17 12/16/17 06:59 18:59 06:59 Intake Total 1260 325 Output Total 200 Balance 1260 125 Weight 101.605 kg Intake: Intake, IV Titration 900 325 Amount Sodium Chloride 0.9% 1, 900 325 000 ml @ 75 mls/hr IV . [id number] ONE Rx#:[id number] Oral 360 Output: Urine 200 Other: Voiding Method Urinal - Exam General: Non-toxic, in no acute distress HEENT: NC/AT, anicteric sclerae, moist conjunctiva, no lid-lag, PERRLA, oropharynx clear, no erythema, exudates Cardiovascular: S1/S2 wnl, no murmurs, rubs, or gallops Lungs: Clear to auscultation, normal respiratory effort, no accessory muscle use Abdominal: Soft, nontender, non-distended, no guarding, rebound, or rigidity, normoactive bowel sounds Skin: Warm, dry Extremities: L hip tenderness with limited range of motion, no edema, or contractures noted Psychiatric: Alert and oriented to person, place and time, appropriate affect, Intact judgment Neuro: CN II-XII grossly intact, no focal motor deficits - Labs CBC & Chem 7: 12/15/17 07:36 12/15/17 07:36 Labs: Abnormal Lab Results - Last 24 Hours (Table) 12/14/17 12/14/17 12/15/17 Range/Units 14:53 14:53 07:00 WBC (3.8-10.6) k/uL Neutrophils # (1.3-7.7) k/uL Creatinine (0.66-1.25) mg/dL Glucose (74-99) mg/dL POC Glucose (mg/dL) 172 H (75-99) mg/dL Hemoglobin A1c 11.7 H (4.0-6.0) % ALT (21-72) U/L Total Protein (6.3-8.2) g/dL Albumin (3.5-5.0) g/dL Vitamin D 25-Hydroxy 20.8 L (30.0-100.0) ng/mL Urine Protein (Negative) Urine Glucose (UA) (Negative) Urine Ketones (Negative) Urine Blood (Negative) Ur Leukocyte Esterase (Negative) Urine WBC (0-5) /hpf Urine Bacteria (None) /hpf Urine Mucus (None) /hpf 12/15/17 12/15/17 12/15/17 Range/Units 07:36 07:36 11:18 WBC 12.9 H (3.8-10.6) k/uL Neutrophils # 10.6 H (1.3-7.7) k/uL Creatinine 0.62 L (0.66-1.25) mg/dL Glucose 182 H (74-99) mg/dL POC Glucose (mg/dL) 204 H (75-99) mg/dL Hemoglobin A1c (4.0-6.0) % ALT 16 L (21-72) U/L Total Protein 5.8 L (6.3-8.2) g/dL Albumin 3.2 L (3.5-5.0) g/dL Vitamin D 25-Hydroxy (30.0-100.0) ng/mL Urine Protein (Negative) Urine Glucose (UA) (Negative) Urine Ketones (Negative) Urine Blood (Negative) Ur Leukocyte Esterase (Negative) Urine WBC (0-5) /hpf Urine Bacteria (None) /hpf Urine Mucus (None) /hpf 12/15/17 12/15/17 Range/Units 12:01 17:21 WBC (3.8-10.6) k/uL Neutrophils # (1.3-7.7) k/uL Creatinine (0.66-1.25) mg/dL Glucose (74-99) mg/dL POC Glucose (mg/dL) 239 H (75-99) mg/dL Hemoglobin A1c (4.0-6.0) % ALT (21-72) U/L Total Protein (6.3-8.2) g/dL Albumin (3.5-5.0) g/dL Vitamin D 25-Hydroxy (30.0-100.0) ng/mL Urine Protein 2+ H (Negative) Urine Glucose (UA) 4+ H (Negative) Urine Ketones 1+ H (Negative) Urine Blood Small H (Negative) Ur Leukocyte Esterase Moderate H (Negative) Urine WBC 79 H (0-5) /hpf Urine Bacteria Rare H (None) /hpf Urine Mucus Rare H (None) /hpf Microbiology - Last 24 Hours (Table) 12/15/17 12:01 Urine Culture - Preliminary Urine,Voided Assessment and Plan Plan: Acute L femoral neck fracture - Ortho on the case, planning for surgery with either a hemiarthroplasty of the left hip or left total hip arthroplasty - Continue with non-weightbearing of left lower extremity and bedrest - Pain control with [place] 5, and morphine PRN - Cardiology consulted regarding Plavix. Recs appreciated. Plavix will require 5 days to clear out of system. We'll obtain stress test records from previous hospitalization. CAD s/p CABG - Hold plavix for now - C/w Coreg 6.25, Lisinopril 20, Imdur 30 mg qd, and Lipitor 40 Type 2 DM, poorly controlled - Sliding scale for now. patient takes 70:30 insulin at home - A1C 11.7 - Will start Levemir 10 U qhs HTN - C/w Coreg, Lisinopril, and Imdur for now Parkinson's disease - Will confirm Sinemet dose with pharmacy in am and restart accordingly Depression - C/w Effexor 150 mg/75 mg Peripheral neuropathy - C/w Gabapentin DVT//GI prophylaxis - IPCDs - No indication for GI prophylaxis Discussed with: Patient Anticipated discharge date: 12/19/[address]: Home w/ home-care A total of 45 minutes was spent on the care of this complex patient more than 50 % of the time was spent in counseling and care coordination.
[2017-12-15 20:07] LABS: Glucose,Whole Blood 231 mg/dL (75-99)
[2017-12-15] MEDS: ATORVASTATIN 40 MG TAB PO SCH (21:43)
[2017-12-15] MEDS: VENLAFAXINE HCL ER 75 MG CAP PO SCH (21:43)
[2017-12-15] MEDS: INSULIN DETEMIR 100 UNIT/ML 10 ML VIAL SQ SCH (21:43)
[2017-12-16 07:05] LABS: Glucose,Whole Blood 182 mg/dL (75-99)
[2017-12-16] MEDS: GABAPENTIN 300 MG CAP PO SCH ×3 (07:31→21:31)
[2017-12-16] MEDS: CARVEDILOL 6.25 MG TAB PO SCH ×2 (07:31→21:27)
[2017-12-16] MEDS: ISOSORBIDE MONONITRATE ER 30 MG TAB.ER.24H PO SCH (07:31)
[2017-12-16] MEDS: LISINOPRIL 20 MG TAB PO SCH (07:31)
[2017-12-16] MEDS: VENLAFAXINE HCL ER 150 MG CAP PO SCH (07:31)
[2017-12-16] MEDS: INSULIN ASPART 100 UNIT/ML 1 ML 10 ML VIAL SQ SCH ×4 (07:39→21:31)
[2017-12-16 11:31] LABS: Glucose,Whole Blood 229 mg/dL (75-99)
[2017-12-16 13:29] LABS: INR 1.1 (<1.2); Prothrombin Time 10.6 sec (9.0-12.0)
[2017-12-16] MEDS ORDERED: LACTATED RINGERS 1,000 ML IV ONE ×2 (16:24→19:39)
[2017-12-16 16:46] LABS: Glucose,Whole Blood 196 mg/dL (75-99)
[2017-12-16] MEDS ORDERED: ONDANSETRON 4 MG/2 ML VIAL IVP ONE (16:48)
[2017-12-16] MEDS ORDERED: DEXAMETHASONE SOD PHOS (MDV) 100 MG/10 ML VIAL IVP ONE (16:49)
[2017-12-16] MEDS ORDERED: PHENYLEPHRINE-0.9% NACL SYG 1 MG/10 ML SYRINGE ONE (17:04)
[2017-12-16] MEDS ORDERED: SODIUM CHLORIDE 0.9% IRRIG 1,000 ML BTL IRRIGATION ONE (17:04)
[2017-12-16] MEDS ORDERED: GLYCOPYRROLATE 0.2 MG/ML 2 ML VIAL ONE (17:04)
[2017-12-16] MEDS ORDERED: NEOSTIGMINE 1 MG/ML 10 ML VIAL ONE (17:04)
[2017-12-16] MEDS ORDERED: PROPOFOL 10 MG/ML 20 ML VIAL IV ONE (17:04)
[2017-12-16] MEDS ORDERED: HYDROmorphone (PF) 1 MG/ML ONE (17:04)
[2017-12-16] MEDS ORDERED: SUCCINYLCHOLINE CHLORIDE 100 MG/5 ML SYR IV ONE (17:04)
[2017-12-16] MEDS ORDERED: fentaNYL (PF) 50 MCG/ML 2 ML AMP ONE (17:04)
[2017-12-16] MEDS ORDERED: ROCURONIUM BROMIDE 10 MG/ML 10 ML VIAL IV ONE (17:04)
[2017-12-16] MEDS ORDERED: HEPARIN SODIUM,PORCINE 10,000 UNIT/ML 1 ML VIAL ONE (17:04)
[2017-12-16] MEDS ORDERED: LIDOCAINE 1% INJ 10MG/ML (20 ML MDV) ONE (17:04)
[2017-12-16] MEDS ORDERED: MIDAZOLAM 2 MG/2 ML VIAL ONE (17:04)
[2017-12-16] MEDS ORDERED: SODIUM CHLORIDE 0.9% 50 ML with ceFAZolin 2,000 MG IV ONE ×2 (17:15)
[2017-12-16] MEDS ORDERED: ceFAZolin 3,000 MG in SODIUM CHLORIDE 0.9% IRRIGATIO 3,000 ML IRRIGATION ONE (17:38)
[2017-12-16] MEDS ORDERED: ONDANSETRON 4 MG/2 ML VIAL IVP PRN (18:56)
[2017-12-16] MEDS ORDERED: HYDROcodone/APAP 5-325MG 1 EACH TAB PO PRN ×2 (18:56)
[2017-12-16] MEDS ORDERED: HYDROmorphone 1 MG/ML 1 ML SYRINGE IVP PRN ×3 (18:56)
[2017-12-16] MEDS ORDERED: NALOXONE 0.4 MG/ML 1 ML VIAL IV PRN (18:56)
--- NOTE | 2017-12-16 18:56 | P.OP ---
Date of Procedure: 12/16/17 Preoperative Diagnosis: Left hip femoral neck fracture Postoperative Diagnosis: Same plus acetabular osteoarthritis Procedure(s) Performed: Direct anterior left total hip arthroplasty Implants: 1. Depuy Corail KA size 14 press-fit femoral stem 2. Depuy pinnacle size 56 press-fit acetabular shell 3. Depuy pinnacle polyethylene acetabular liner 56 OD 36 ID 4. Biolox delta ceramic femoral head +1.5 36 Anesthesia: CEZAR Surgeon: Matias Ospina Salvager #1: Estevan Goddard Estimated Blood Loss (ml): 275 Pathology: other (Femoral head) Condition: stable Disposition: PACU Indications for Procedure: 67-year-old patient seen with a left hip femoral neck fracture. There was some evidence for some acetabular osteoarthritis as well. I recommended direct anterior left total hip arthroplasty. I discussed the procedure, risks, complications and recovery. Patient was agreeable and consent regarding the procedure was obtained. Operative Findings: see description of procedure Description of Procedure: The patient was taken to the operative suite. Patient underwent a general anesthetic by the department of anesthesia. Patient was then transferred to the [facility]. Patient was given preoperative IV antibiotics. Both lower extremities were placed in standard leg spars. The hip was then prepped and draped in the normal sterile orthopedic fashion. A standard anterior incision was made beginning 3 cm lateral and 1 cm distal to the ASIS extending 10 cm. Dissection was then carried down through the subcutaneous soft tissues down to the fascia overlying the tensor fascia sri. An incision was now made through the fascia. Careful dissection was taken down exposing the tensor fascia sri muscle. A Cobra retractor was now placed along the medial femoral neck and a second one along the lateral femoral neck. The venous circumflex vessels were now identified, cauterized and clipped. We identified the anterior hip capsule. An incision was made through the hip capsule along the lateral border. I performed a partial anterior capsulectomy. Retractors were now placed around the femoral neck itself. I noted a displaced femoral neck fracture. A femoral neck cut was now made with a sagittal saw. It was completed with an osteotome at the lateral neck area. The femoral head was now removed without difficulty. Her was some moderate osteoarthritis involving the acetabulum. The extremity was now rotated to 45 of external rotation. It was locked in position. Residual labrum was now debrided out. Serial reaming was performed of the acetabulum while Andrew ROBERTSON assisted holding an anterior retractor for exposure. Once we reached the appropriate size and a trial was position and fit nicely. The appropriate size was now chosen opened and made available. It was introduced into the acetabulum without difficulty. The C-arm /fluoroscopy was now brought into the operative field. We made sure we had a true AP pelvic view. We now under direct C-arm/fluoroscopy introduced into the acetabular component with appropriate version and inclination. I held the cup in appropriate position well Andrew ROBERTSON used a mallet to seat the acetabular component. I noted the component now to be well seated and stable. Acetabular cup introduce her was removed. The C-arm was pulled back. An appropriate liner was introduced and clicked into position. It was felt to be stable. At this point retractors were removed. The extremity was now placed into 120 external rotation with no traction. The leg was now dropped to the ground and adducted. Appropriate retractors were now positioned along the proximal femur. We also placed our femoral look into position. Additional capsular releasing was performed to gain access to the proximal femur. We now used a box osteotome. A canal finder was now utilized. Serial broaching was now performed with the assistance of Andrew ROBERTSON tapping the broaches down with a mallet while held the broach in appropriate rotation and position. This was done until we reached the appropriate size with good overall rotational stability. Appropriate calcar planing was performed. A trial head/neck was placed into position. The hip was now reduced. The C-arm/fluoroscopy was brought back into the operative field. A spot film was obtained of the nonoperative hip. A spot film was obtained of the trial components. Overlays were performed, we noted good overall alignment and positioning for determining leg length. The C-arm/fluoroscopy was pulled back. Retractors were repositioned and the hip was dislocated. The leg was again taken down to the ground and adducted. Appropriate retractors were repositioned as well as the femoral hook. All trial components were removed. The femoral implant was opened along with the femoral head. The femoral implant was introduced on the appropriate handle into our pre-broached area. I held the component position well Andrew ROBERTSON used a mallet to seat the femoral component. The femoral component was now noted to be well seated and stable.. The femoral head was introduced with good positioning and fixation noted. Retractors were now removed. The hip was now reduced. There appeared be good positioning of the hip confirmed on intraoperative fluoroscopy. Spot films were obtained to document this. Bipolar cautery had been utilized intermittently through the procedure for hemostasis. The wound was irrigated copiously with pulse lavage mechanical irrigation. The fascia was repaired with Vicryl suture. The subcutaneous soft tissues were repaired in layers with Vicryl suture. The skin was approximated with pernio/Dermabond. Sterile dressings were applied. Patient was then awakened, transferred to a bed and taken to recovery in stable condition. Andrew ROBERTSON assisted with the complex procedure.
[2017-12-16 19:52] LABS: Glucose,Whole Blood 232 mg/dL (75-99)
[2017-12-16] MEDS ORDERED: INSULIN ASPART 100 UNIT/ML 1 ML 10 ML VIAL SQ ONE (19:55)
[2017-12-16] MEDS: VENLAFAXINE HCL ER 75 MG CAP PO SCH (21:31)
[2017-12-16] MEDS: ATORVASTATIN 40 MG TAB PO SCH (21:31)
[2017-12-16] MEDS: SENNOSIDES-DOCUSATE SODIUM 1 EACH TAB PO SCH (21:31)
[2017-12-16] MEDS: INSULIN DETEMIR 100 UNIT/ML 10 ML VIAL SQ SCH (21:31)
[2017-12-16 21:35] LABS: Glucose,Whole Blood 247 mg/dL (75-99)
[2017-12-17] MEDS: ceFAZolin IN SWFI 2 GM/20 ML SYRINGE IVP SCH ×2 (00:58→08:26)
--- NOTE | 2017-12-17 06:25 | FL ---
EXAMINATION TYPE: FL guidance operating room, XR Hip Limited LT DATE OF EXAM: 12/16/2017 CLINICAL HISTORY: Left hip replacement surgery after fracture. TECHNIQUE: Fluoroscopy. Limited intraoperative views left hip. COMPARISON: Pelvic and left hip x-ray from 2 days earlier. FINDINGS: Fluoroscopic guidance was provided during left hip replacement procedure performed by Dr. Ospina. A total of 38 seconds of fluoroscopic time was utilized during the procedure and single s pot intraoperative image is acquired. Single intraoperative image acquired shows metallic hardware from hip arthroplasty that appears [employer] in position on frontal projection. IMPRESSION: As Above.
[2017-12-17 07:04] LABS: Glucose,Whole Blood 215 mg/dL (75-99)
[2017-12-17 07:37] LABS: Basophils % (A) 0 %; Eosinophils % (A) 0 %; HCT 41.5 % (39.0-53.0); HGB 14.2 gm/dL (13.0-17.5); Lymphocytes # (A) 0.8 k/uL (1.0-4.8); Lymphocytes % (A) 6 %; MCH 31.1 pg (25.0-35.0); MCHC 34.3 g/dL (31.0-37.0); MCV 90.9 fL (80.0-100.0); Mean Platelet Volume 7.4; Monocytes # (A) 1.1 k/uL (0-1.0); Monocytes % (A) 8 %; Neutrophils # (A) 10.6 k/uL (1.3-7.7); Neutrophils % (A) 84 %; Platelet Count 217 k/uL (150-450); RBC 4.57 m/uL (4.30-5.90); RDW 13.4 % (11.5-15.5); WBC 12.7 k/uL (3.8-10.6)
[2017-12-17] MEDS: CARVEDILOL 6.25 MG TAB PO SCH ×2 (08:25→18:02)
[2017-12-17] MEDS: INSULIN ASPART 100 UNIT/ML 1 ML 10 ML VIAL SQ SCH ×4 (08:25→21:58)
[2017-12-17] MEDS: ISOSORBIDE MONONITRATE ER 30 MG TAB.ER.24H PO SCH (08:26)
[2017-12-17] MEDS: GABAPENTIN 300 MG CAP PO SCH ×3 (08:26→22:40)
[2017-12-17] MEDS: FAMOTIDINE 20 MG TAB PO SCH (08:26)
[2017-12-17] MEDS: LISINOPRIL 20 MG TAB PO SCH (08:26)
[2017-12-17] MEDS: VENLAFAXINE HCL ER 150 MG CAP PO SCH (08:27)
[2017-12-17] MEDS ORDERED: ENOXAPARIN 40 MG/0.4 ML SYRINGE SQ SCH (09:00)
--- NOTE | 2017-12-17 11:46 | P.PN ---
Subjective Progress Note Date: 12/17/17 Principal diagnosis: Status post left total hip arthroplasty Patient seen today resting in his hospital bed, his present at bedside. Pain is well-controlled at this time. He is waiting to work with physical therapy. He denies any chest pain or shortness of breath. Objective - Vital Signs Vital signs: Vital Signs Temp 97.4 F L 12/17/17 07:05 Pulse 107 H 12/17/17 07:05 Resp 22 12/17/17 07:05 BP 157/67 12/17/17 07:05 Pulse Ox 93 L 12/17/17 07:50 Intake & Output 12/16/17 12/17/17 12/17/17 18:59 06:59 18:59 Intake Total 151 1550 Output Total 275 400 Balance -124 1150 Intake: IV 151 1550 0.9 600 Oral 0 Output: Post Void Residual 400 Estimated Blood Loss 275 Other: Voiding Method Urinal Urinal # Voids 0 - Exam Left lower extremity: Incision is clean, dry, and intact. The prineo tape is in good condition. There is minimal soft tissue swelling and ecchymosis surrounding the medial and lateral aspects of the incision. Calf is soft, no tenderness with palpation. Plantar flexion, dorsiflexion, EHL, FHL are intact. Sensory exam to light touch throughout the extremity is intact, dorsal pedis pulses 2+. - Labs CBC & Chem 7: 12/17/17 07:07 12/15/17 07:36 Labs: Abnormal Lab Results - Last 24 Hours (Table) 12/16/17 12/16/17 12/16/17 Range/Units 16:36 19:51 21:25 WBC (3.8-10.6) k/uL Neutrophils # (1.3-7.7) k/uL Lymphocytes # (1.0-4.8) k/uL Monocytes # (0-1.0) k/uL POC Glucose (mg/dL) 196 H 232 H 247 H (75-99) mg/dL 12/17/17 12/17/17 Range/Units 07:03 07:07 WBC 12.7 H (3.8-10.6) k/uL Neutrophils # 10.6 H (1.3-7.7) k/uL Lymphocytes # 0.8 L (1.0-4.8) k/uL Monocytes # 1.1 H (0-1.0) k/uL POC Glucose (mg/dL) 215 H (75-99) mg/dL Microbiology - Last 24 Hours (Table) 12/15/17 12:01 Urine Culture - Final Urine,Voided Assessment and Plan Plan: Assessment: Postoperative day #1 status post left total hip arthroplasty Plan: Pain control, continue supportive oral medication GI and DVT prophylaxis, will restart Plavix tomorrow Work with physical therapy Daily dressing changes/ice the hip region Medical recommendations Discharge planning: Patient will likely discharged home tomorrow Time with Patient: Less than 30
[2017-12-17 11:47] LABS: Glucose,Whole Blood 274 mg/dL (75-99)
--- NOTE | 2017-12-17 12:36 | CDI ---
Last Revision, February 2017 Documentation Clarification Form Date: 12/17/2017 12:22:09 PM From: Lianne Duffy RN, CCDS Admit Date: 12/14/2017 4:49:00 PM Patient Name: Eddi Flores Visit Number: [id number] Discharge Date: ATTENTION: The Clinical Documentation Specialists (CDI) and [facility] Coding Staff appreciate your assistance in clarifying documentation. Please respond to the clarification below the line at the bottom and electronically sign. The CDI & [facility] Coding staff will review the response and follow-up if needed. Please note: Queries are made part of the Legal Health Record. If you have any questions, please contact the author of this message via ITS. Carlo Hamilton MD The patient has diabetes mellitus type 2 poorly controlled, as indicated on progress note on 12/15/17: History/Risk Factors: CAD, Hypertension, Diabetes Mellitus Type 2, Parkinson's disease Clinical Indicators: Patient with past medical history of diabetes mellitus with Hemoblobin A1C on 12/14/17 of 11.7. POC glucose: 172, 204, 239, Treatment: Glucose monitoring and Sliding scale coverage Levemir sq qhs In order to capture the severity of Illness and necessary documentation specificity, please clarify DM Type 2 poorly controlled as: Hyperglycemia Hypoglycemia Other, please specify Unable to Determine Please continue to document in your progress notes in order to capture severity of illness and risk of mortality. Include clinical findings that support your diagnosis. Hyperglycemia MTDD
--- NOTE | 2017-12-17 13:46 | P.PN ---
Subjective Mr. Flores is seen and examined laying flat in bed. He is in no acute distress. He underwent left hip arthroplasty yesterday afternoon. He denies symptoms of chest pain, shortness of breath, dizziness or palpitations. Blood pressure 157/ 67 heart rate 107 afebrile and maintaining oxygen saturation on nasal cannula. Laboratory data reviewed, WBC 12.7, hemoglobin 14.2 and platelets 217. Currently maintained on atorvastatin 40 mg daily, carvedilol 6.25 mg twice a day Plavix 75 mg daily Imdur 30 mg daily and lisinopril 20 mg daily. Objective - Vital Signs Vital signs: Vital Signs Temp 97.4 F L 12/17/17 07:05 Pulse 107 H 12/17/17 07:05 Resp 22 12/17/17 07:05 BP 157/67 12/17/17 07:05 Pulse Ox 93 L 12/17/17 07:50 Intake & Output 12/16/17 12/17/17 12/17/17 18:59 06:59 18:59 Intake Total 151 1550 Output Total 275 400 Balance -124 1150 Intake: IV 151 1550 0.9 600 Oral 0 Output: Post Void Residual 400 Estimated Blood Loss 275 Other: Voiding Method Urinal Urinal # Voids 0 - Exam GENERAL: Well-appearing, well-nourished and in no acute distress. NECK: Supple without JVD or thyromegaly. LUNGS: Breath sounds clear to auscultation bilaterally. Respiration equal and unlabored. No wheezes, rales or rhonchi. HEART: Regular rate and rhythm without murmurs, rubs or gallops. S1 and S2 heard. EXTREMITIES: Normal range of motion, no edema. No clubbing or cyanosis. Peripheral pulses intact. Dressing noted to the left foot. - Labs CBC & Chem 7: 12/17/17 07:07 12/15/17 07:36 Labs: Abnormal Lab Results - Last 24 Hours (Table) 12/16/17 12/16/17 12/16/17 Range/Units 16:36 19:51 21:25 WBC (3.8-10.6) k/uL Neutrophils # (1.3-7.7) k/uL Lymphocytes # (1.0-4.8) k/uL Monocytes # (0-1.0) k/uL POC Glucose (mg/dL) 196 H 232 H 247 H (75-99) mg/dL 12/17/17 12/17/17 12/17/17 Range/Units 07:03 07:07 11:39 WBC 12.7 H (3.8-10.6) k/uL Neutrophils # 10.6 H (1.3-7.7) k/uL Lymphocytes # 0.8 L (1.0-4.8) k/uL Monocytes # 1.1 H (0-1.0) k/uL POC Glucose (mg/dL) 215 H 274 H (75-99) mg/dL Microbiology - Last 24 Hours (Table) 12/15/17 12:01 Urine Culture - Final Urine,Voided Assessment and Plan Assessment: ASSESSMENT Mechanical fall from standing resulting an impacted left femoral neck fracture History of coronary artery disease status post bypass grafting, maintained on Plavix Chronic systolic and diastolic heart failure, currently euvolemic Hypertension Dyslipidemia Diabetes mellitus COPD Chronic nicotine dependence PLAN Resume all cardiac medications at home doses. Stable from a cardiac perspective. Follow up with primary camera maker, Dr. Rodriguez from [place] upon discharge. We will continue to follow as needed. Please feel free to call with further questions or concerns. Nurse Practitioner note has been reviewed, I agree with a documented findings and plan of care. Patient was seen and examined.
[2017-12-17 17:20] LABS: Glucose,Whole Blood 286 mg/dL (75-99)
--- NOTE | 2017-12-17 19:28 | P.PN ---
Subjective Progress Note Date: 12/17/17 The patient was seen and examined at the bedside. The patient was in good spirits though c/o heartburn and continued mild pain at site of surgery. He otherwise denied fever, chills, cough, chest pain, shortness breath, nausea, vomiting Objective - Vital Signs Vital signs: Vital Signs Temp 98.5 F 12/17/17 14:10 Pulse 90 12/17/17 14:10 Resp 20 12/17/17 14:10 BP 112/54 12/17/17 14:10 Pulse Ox 94 L 12/17/17 14:10 Intake & Output 12/17/17 12/17/17 12/18/17 06:59 18:59 06:59 Intake Total 1550 Output Total 400 600 Balance 1150 -600 Weight 101.605 kg Intake: IV 1550 0.9 600 Output: Urine 600 Post Void Residual 400 Other: Voiding Method Urinal # Voids 0 0 - Exam General: Non-toxic, in no acute distress HEENT: NC/AT, anicteric sclerae, moist conjunctiva, no lid-lag, PERRLA, oropharynx clear, no erythema, exudates Cardiovascular: S1/S2 wnl, no murmurs, rubs, or gallops Lungs: Clear to auscultation, normal respiratory effort, no accessory muscle use Abdominal: Soft, nontender, non-distended, no guarding, rebound, or rigidity, normoactive bowel sounds Skin: Warm, dry Extremities: L hip post-op, no edema, or contractures noted Psychiatric: Alert and oriented to person, place and time, appropriate affect, Intact judgment Neuro: CN II-XII grossly intact, no focal motor deficits - Labs CBC & Chem 7: 12/17/17 07:07 12/15/17 07:36 Labs: Abnormal Lab Results - Last 24 Hours (Table) 12/16/17 12/16/17 12/17/17 Range/Units 19:51 21:25 07:03 WBC (3.8-10.6) k/uL Neutrophils # (1.3-7.7) k/uL Lymphocytes # (1.0-4.8) k/uL Monocytes # (0-1.0) k/uL POC Glucose (mg/dL) 232 H 247 H 215 H (75-99) mg/dL 12/17/17 12/17/17 12/17/17 Range/Units 07:07 11:39 17:19 WBC 12.7 H (3.8-10.6) k/uL Neutrophils # 10.6 H (1.3-7.7) k/uL Lymphocytes # 0.8 L (1.0-4.8) k/uL Monocytes # 1.1 H (0-1.0) k/uL POC Glucose (mg/dL) 274 H 286 H (75-99) mg/dL Microbiology - Last 24 Hours (Table) 12/15/17 12:01 Urine Culture - Final Urine,Voided Assessment and Plan Plan: Acute L femoral neck fracture, s/p L total hip arthroplasty - Pain control with [place] 5, and morphine PRN CAD s/p CABG - Plavix resumed - C/w Coreg 6.25, Lisinopril 20, Imdur 30 mg qd, and Lipitor 40 Type 2 DM, poorly controlled - A1C 11.7 - Increase Levemir to 20 U qhs. HTN - C/w Coreg, Lisinopril, and Imdur for now Depression - C/w Effexor 150 mg/75 mg Peripheral neuropathy - C/w Gabapentin DVT//GI prophylaxis - IPCDs - No indication for GI prophylaxis
[2017-12-17 19:50] LABS: Glucose,Whole Blood 301 mg/dL (75-99)
--- NOTE | 2017-12-17 20:17 | P.GSCN ---
History of Present Illness Consult date: 12/17/17 Reason for Consult: Right scrotal swelling Requesting physician: Matias Ospina History of present illness: The patient is a 67-year-old white male who underwent repair of a left hip fracture yesterday. He was noted today to have right scrotal swelling, and I'm consulted for this reason. He denies scrotal pain. Review of Systems - Genitourinary Denies genital pain, Denies testicular pain Past Medical History Past Medical History: Coronary Artery Disease (CAD), Heart Failure, COPD, Dementia, Diabetes Mellitus, Hearing Disorder / Deafness, Hypertension, Myocardial Infarction (AR), Sleep Apnea/CPAP/BIPAP Additional Past Medical History / Comment(s): parkinsons Last Myocardial Infarction Date:: unk History of Any Multi-Drug Resistant Organisms: None Reported Past Surgical History: Coronary Bypass/CABG Past Psychological History: No Psychological Hx Reported Smoking Status: Current every day smoker Past Alcohol Use History: None Reported Past Drug Use History: None Reported - Past Family History Father Family Medical History: Hypertension Medications and Allergies Home Medications Medication Instructions Recorded Confirmed Type Atorvastatin Calcium [Lipitor] 40 mg PO HS 12/14/17 12/14/17 History Carbidopa-Levodopa 25-100 mg 1 tab PO DAILY@1200 12/14/17 12/14/17 History [Sinemet 25-100 mg] Carbidopa-Levodopa 25-100 mg 2 tab PO BID 12/14/17 12/14/17 History [Sinemet 25-100 mg] Carvedilol [Coreg] 6.25 mg PO BID 12/14/17 12/14/17 History Clopidogrel [Plavix] 75 mg PO DAILY 12/14/17 12/14/17 History Gabapentin [Neurontin] 300 mg PO TID 12/14/17 12/14/17 History Insulin NPH Hum/Reg Insulin Hm 60 unit SQ BID 12/14/17 12/14/17 History [Novolin 70-30 100 Unit/ml Vial] Isosorbide Mononitrate ER [Imdur] 30 mg PO DAILY 12/14/17 12/14/17 History Lisinopril [Zestril] 20 mg PO DAILY 12/14/17 12/14/17 History Venlafaxine HCl ER [Effexor XR] 75 mg PO HS 09/17/18 09/17/18 History Venlafaxine HCl ER [Effexor XR] 150 mg PO QAM 12/14/17 12/14/17 History metFORMIN HCL 1,000 mg PO AC-BID 12/14/17 12/14/17 History Allergies Allergy/AdvReac Type Severity Reaction Status Date / Time No Known Allergies Allergy Verified 12/16/17 16:53 Surgical - Exam Vital Signs Temp Pulse Resp BP Pulse Ox 97.8 F 65 18 122/88 95 12/14/17 13:15 12/14/17 13:15 12/14/17 13:15 12/14/17 13:15 12/14/17 13:15 - General well developed, well nourished, no distress - Respiratory normal respiratory effort - Genitourinary normal penis with no external lesions, other (A large right hydrocele is noted. This is non-tender. The left testicle is palpably normal.) right: scrotal mass/hydrocele Results - Labs 12/17/17 07:07 12/15/17 07:36 Abnormal Lab Results - Last 24 Hours (Table) 12/16/17 12/17/17 12/17/17 Range/Units 21:25 07:03 07:07 WBC 12.7 H (3.8-10.6) k/uL Neutrophils # 10.6 H (1.3-7.7) k/uL Lymphocytes # 0.8 L (1.0-4.8) k/uL Monocytes # 1.1 H (0-1.0) k/uL POC Glucose (mg/dL) 247 H 215 H (75-99) mg/dL 12/17/17 12/17/17 12/17/17 Range/Units 11:39 17:19 19:49 WBC (3.8-10.6) k/uL Neutrophils # (1.3-7.7) k/uL Lymphocytes # (1.0-4.8) k/uL Monocytes # (0-1.0) k/uL POC Glucose (mg/dL) 274 H 286 H 301 H (75-99) mg/dL Microbiology - Last 24 Hours (Table) 12/15/17 12:01 Urine Culture - Final Urine,Voided Assessment and Plan (1) Hydrocele Current Visit: Yes Status: Acute Code(s): N43.3 - HYDROCELE, UNSPECIFIED SNOMED Code(s): 22681824 Plan: I reassured Mr. Flores that hydroceles are common, and that surgical repair would be indicated only if he becomes symptomatic in the future. He will follow up as needed. Please notify me if I can be of any further assistance. Time with Patient: Less than 30
[2017-12-17] MEDS ORDERED: INSULIN DETEMIR 100 UNIT/ML 10 ML VIAL SQ SCH (21:00)
[2017-12-17] MEDS: SENNOSIDES-DOCUSATE SODIUM 1 EACH TAB PO SCH (21:57)
[2017-12-17] MEDS: VENLAFAXINE HCL ER 75 MG CAP PO SCH (21:57)
[2017-12-17] MEDS: ATORVASTATIN 40 MG TAB PO SCH (21:57)
[2017-12-18 07:14] LABS: Glucose,Whole Blood 241 mg/dL (75-99)
[2017-12-18] MEDS: ISOSORBIDE MONONITRATE ER 30 MG TAB.ER.24H PO SCH (08:24)
[2017-12-18] MEDS: VENLAFAXINE HCL ER 150 MG CAP PO SCH (08:24)
[2017-12-18] MEDS: FAMOTIDINE 20 MG TAB PO SCH (08:24)
[2017-12-18] MEDS: GABAPENTIN 300 MG CAP PO SCH ×2 (08:24→17:16)
[2017-12-18] MEDS: LISINOPRIL 20 MG TAB PO SCH (08:24)
[2017-12-18] MEDS: CARVEDILOL 6.25 MG TAB PO SCH ×2 (08:24→17:16)
[2017-12-18] MEDS: INSULIN ASPART 100 UNIT/ML 1 ML 10 ML VIAL SQ SCH ×2 (08:26→12:02)
[2017-12-18] MEDS ORDERED: CLOPIDOGREL 75 MG TAB PO SCH (09:00)
[2017-12-18 11:10] LABS: Glucose,Whole Blood 328 mg/dL (75-99)
--- NOTE | 2017-12-18 11:43 | P.PN ---
Subjective Progress Note Date: 12/18/17 Principal diagnosis: Status post left total hip arthroplasty Patient seen today resting in his hospital bed, his present at bedside. Pain is well-controlled at this time. He denies any chest pain or shortness of breath. Objective - Vital Signs Vital signs: Vital Signs Temp 96.8 F L 12/18/17 05:44 Pulse 95 12/18/17 05:44 Resp 16 12/18/17 05:44 BP 167/75 12/18/17 05:44 Pulse Ox 92 L 12/18/17 06:57 Intake & Output 12/17/17 12/18/17 12/18/17 18:59 06:59 18:59 Intake Total 1070 590 Output Total 600 300 Balance -600 770 590 Weight 101.605 kg Intake: Oral 1070 590 Output: Urine 600 300 Other: Voiding Method Urinal Urinal # Voids 0 2 - Exam Left lower extremity: Incision is clean, dry, and intact. The prineo tape is in good condition. There is minimal soft tissue swelling and ecchymosis surrounding the medial and lateral aspects of the incision. Calf is soft, no tenderness with palpation. Plantar flexion, dorsiflexion, EHL, FHL are intact. Sensory exam to light touch throughout the extremity is intact, dorsal pedis pulses 2+. - Labs CBC & Chem 7: 12/17/17 07:07 12/15/17 07:36 Labs: Abnormal Lab Results - Last 24 Hours (Table) 12/17/17 12/17/17 12/17/17 Range/Units 11:39 17:19 19:49 POC Glucose (mg/dL) 274 H 286 H 301 H (75-99) mg/dL 12/18/17 12/18/17 Range/Units 07:12 11:05 POC Glucose (mg/dL) 241 H 328 H (75-99) mg/dL Assessment and Plan Plan: Assessment: Postoperative day #2 status post left total hip arthroplasty Plan: Pain control, continue supportive oral medication GI and DVT prophylaxis, will restart Plavix tomorrow Work with physical therapy Daily dressing changes/ice the hip region Medical recommendations Discharge planning: Plan is for discharge to rehab today Time with Patient: Less than 30
[2017-12-18 12:48] VITALS: RESP 20; TEMP 98.2
--- NOTE | 2017-12-18 16:05 | P.DS ---
Providers Date of admission: 12/14/17 16:49 Expected date of discharge: 12/18/17 Attending physician: Matias Ospina Consults: 12/14/17 16:58 Consult Physician Stat Consulting Provider: Gilberto Watts Consult Reason/Comments: Medical clearance for surgery Do you want consulting provider notified?: Yes 12/14/17 20:56 Consult Physician Stat Consulting Provider: [facility] Consult Reason/Comments: Pre-op clearance, high cardiac risk, recent CABG Do you want consulting provider notified?: Yes 12/17/17 11:56 Consult Physician Routine Consulting Provider: Antoine Art Consult Reason/Comments: Testicular Swelling Do you want consulting provider notified?: Yes Primary care physician: [facility] Course: Date of admission: 12/14/2017 Date of discharge: 12/18/2014 Admission diagnosis: Left femoral neck fracture Discharge diagnosis: Status post left total hip arthroplasty Attending physician: Dr. Ospina Surgical procedures: Direct anterior left total hip arthroplasty Brief history: Patient is a 59-year-old male who presented to [facility] on 12/14/2017 after sustaining a fall in the nurse parking lot. He fallen directly onto the left hip. He was unable to ambulate, EMS did bring the patient to [facility]. Imaging studies demonstrated impacted left femoral neck fracture. Patient was admitted under orthopedic care , proper clearances were placed. Plan was for surgery, more specifically a direct anterior left total hip arthroplasty. Patient is anticoagulated with Plavix, he is off this for 2 days before undergoing surgery. Patient underwent general anesthesia. Hospital course: Details of patient's surgery can be found in operative report. Patient tolerated the procedure well and was subsequently transported to orthopedic floor. Patient's orthopeidc and medical care was provided daily. Patient had daily laboratory tests performed for evaluation of overall blood counts. Patient had daily physical therapy to include strengthening range of motion as well as education with walker ambulation. Patient was treated with Lovenox initially, then placed back on home Plavix dose for their postoperative DVT prophylaxis during their inpatient stay. Patient was noted to have a relatively uneventful postoperative course. Patient reported satisfactory pain control with oral pain medications by postoperative day 0. Patient showed satisfactory progress with physical therapy. Patient moved steadily through the program and had no difficulty meeting the goals by postoperative day 2. Given patient's otherwise satisfactory course and having met physical therapy goals, plan is to discharge patient rehab on postoperative day 2. Discharge condition/disposition: Patient will be discharged rehab in stable condition. Discharge medications: Instructions are given on resumption of patient's normal daily medications per primary care recommendation, in addition patient will be prescribed [place] 5 mg/325 mg. Discharge instructions: 1. Wound care and infection precautions, keep incision dry and covered while showering, no lotions, creams, moisturizers. No soaking, tubs, pools, hottubs. Do not scrub over the incision. 2. Weight-bear as tolerated with walker / cane until follow-up. 3. Ice and elevate when necessary. Do not exceed 20 minutes per hour with ice pack. 4. Utilize compression sleeve until seen at first follow up appointment. 5. Visiting nursing care. 6. Home physical therapy. 7. Pain meds and anticoagulants per prescription. 8. Pain medication has potential to cause constipation. Increase oral fluid and fiber intake. Contact primary care provider if you have not had a bowel movement within 48 hours after discharge 9. No anti-inflammatory medication until discussed at first post operative visit, this including Motrin, Aleve, Mobic, Diclofenac. 10. Follow up in office at 2 weeks postop with Andrew Goddard PA-C 11. Follow up with your primary care doctor 7-10 days after discharge. 12. Contact [facility] with any questions, . Procedures: Left total hip arthroplasty Patient Condition at Discharge: Stable Plan - Discharge Summary New Discharge Prescriptions: New Hydrocodone/Acetaminophen [[place] 5-325] 1 each PO Q6HR PRN #28 tab PRN Reason: Pain No Action Clopidogrel [Plavix] 75 mg PO DAILY Carvedilol [Coreg] 6.25 mg PO BID Atorvastatin Calcium [Lipitor] 40 mg PO HS metFORMIN HCL 1,000 mg PO AC-BID Venlafaxine HCl ER [Effexor XR] 150 mg PO QAM Venlafaxine HCl ER [Effexor XR] 75 mg PO HS Isosorbide Mononitrate ER [Imdur] 30 mg PO DAILY Carbidopa-Levodopa 25-100 mg [Sinemet 25-100 mg] 1 tab PO DAILY@1200 Carbidopa-Levodopa 25-100 mg [Sinemet 25-100 mg] 2 tab PO BID Lisinopril [Zestril] 20 mg PO DAILY Gabapentin [Neurontin] 300 mg PO TID Insulin NPH Hum/Reg Insulin Hm [Novolin 70-30 100 Unit/ml Vial] 60 unit SQ BID Discharge Medication List Atorvastatin Calcium [Lipitor] 40 mg PO HS 12/14/17 [History] Carbidopa-Levodopa 25-100 mg [Sinemet 25-100 mg] 1 tab PO DAILY@1200 12/14/17 [ History] Carbidopa-Levodopa 25-100 mg [Sinemet 25-100 mg] 2 tab PO BID 12/14/17 [History] Carvedilol [Coreg] 6.25 mg PO BID 12/14/17 [History] Clopidogrel [Plavix] 75 mg PO DAILY 12/14/17 [History] Gabapentin [Neurontin] 300 mg PO TID 12/14/17 [History] Insulin NPH Hum/Reg Insulin Hm [Novolin 70-30 100 Unit/ml Vial] 60 unit SQ BID 12/14/17 [History] Isosorbide Mononitrate ER [Imdur] 30 mg PO DAILY 12/14/17 [History] Lisinopril [Zestril] 20 mg PO DAILY 12/14/17 [History] Venlafaxine HCl ER [Effexor XR] 75 mg PO HS 12/14/17 [History] Venlafaxine HCl ER [Effexor XR] 150 mg PO QAM 12/14/17 [History] metFORMIN HCL 1,000 mg PO AC-BID 12/14/17 [History] Hydrocodone/Acetaminophen [[place] 5-325] 1 each PO Q6HR PRN #28 tab 12/18/17 [Rx] Follow up Appointment(s)/Referral(s): [facility], [NON-STAFF] - 1-2 Days None,Stated [REFERRING] - 1-2 days Estevan Goddard PAC [PHYSICIAN FOOD SANITARIAN] - 2 Weeks Patient Instructions/Handouts: Hip Fracture (ED) Activity/Diet/Wound Care/Special Instructions: Orthopedic Discharge Instructions: 1. Wound care and infection precautions, keep incision dry and covered while showering, no lotions, creams, moisturizers. No soaking, pools, hot tubs. Do not scrub over incision. 2. Weight-bear as tolerated with walker / cane until follow-up. 3. Ice and elevate when necessary. Do not exceed 20 minutes per hour with ice pack. 4. Utilize compression sleeve until seen at first follow up appointment. 5. Pain meds and anticoagulants per prescription. 6. Pain medication has potential to cause constipation. Increase oral fluid and fiber intake. Contact primary care provider if you have not had a bowel movement within 48 hours after discharge. 7. No anti-inflammatory medication until discussed at first post operative visit, this including Motrin, Aleve, Mobic, Diclofenac. 8. Follow up in office at 2 weeks postop with Andrew Goddard PA-C 9. Follow up with your primary care doctor 7-10 days after discharge. 10. Contact [facility] with any questions, . Discharge Disposition: TRANSFER TO SNF/ECF
[2017-12-18 16:40] VITALS: BP 162/77; PULSE 83
== END 2017-12-18 17:25 | DRG 470 ==
LOC: EC 13:06 → 5MS5E 16:49
PROVIDERS: ADMIT Orthopaedic Surgery; ATTEND Orthopaedic Surgery
PROC: 0SRB04A Replacement of Left Hip Joint with Ceramic on Polyethylene Synthetic Substitute, Uncemented, Open Approach (ICD-10-PCS; principal; 2017-12-16 16:30)
DX: S72.002A Fracture of unspecified part of neck of left femur, initial encounter for closed fracture (principal); I50.42 Chronic combined systolic (congestive) and diastolic (congestive) heart failure; E11.42 Type 2 diabetes mellitus with diabetic polyneuropathy; E78.5 Hyperlipidemia, unspecified; E11.65 Type 2 diabetes mellitus with hyperglycemia; F03.90 Unspecified dementia, unspecified severity, without behavioral disturbance, psychotic disturbance, mood disturbance, and anxiety; F17.210 Nicotine dependence, cigarettes, uncomplicated; F32.9 Major depressive disorder, single episode, unspecified; G20 Parkinson's disease; G47.30 Sleep apnea, unspecified; H91.90 Unspecified hearing loss, unspecified ear; I11.0 Hypertensive heart disease with heart failure; I25.10 Atherosclerotic heart disease of native coronary artery without angina pectoris; I25.2 Old myocardial infarction; I25.5 Ischemic cardiomyopathy; I45.10 Unspecified right bundle-branch block; J44.9 Chronic obstructive pulmonary disease, unspecified; M16.12 Unilateral primary osteoarthritis, left hip; N43.3 Hydrocele, unspecified; R12 Heartburn; R26.81 Unsteadiness on feet; R51 Headache; M25.512 Pain in left shoulder; Z79.02 Long term (current) use of antithrombotics/antiplatelets; Z79.4 Long term (current) use of insulin; Z79.899 Other long term (current) drug therapy; Z95.1 Presence of aortocoronary bypass graft; Z82.49 Family history of ischemic heart disease and other diseases of the circulatory system; W01.0XXA Fall on same level from slipping, tripping and stumbling without subsequent striking against object, initial encounter; Y92.481 Parking lot as the place of occurrence of the external cause
CPT/HCPCS: 36415; 70450; 71045; 72125; 73501; 73502; 80053; 81001; 82306; 83036; 85025; 85610; 85730; 86850; 86891; 86900; 86901; 87086; 88305; 88311; 93005; 93306; 94760; 96361; 96374; 96375; 99285

== ENCOUNTER 2017-12-24 20:22 | Inpatient (IN) | payer MEDICARE ==
[2017-12-24] MEDS ORDERED: ATORVASTATIN 80 MG TAB PO STA (20:34)
[2017-12-24] MEDS ORDERED: HEPARIN SODIUM,PORCINE 5,000 UNIT/ML 1 ML VIAL IV PRN (20:36)
[2017-12-24] MEDS ORDERED: NITROGLYCERIN SL TABS 0.4 MG TAB SUBLINGUAL PRN (20:36)
--- NOTE | 2017-12-24 20:38 | ED ---
General Adult HPI - General Chief complaint: Chest Pain Stated complaint: Stemi Time Seen by Provider: 12/24/17 20:32 Source: patient, RN notes reviewed, old records reviewed Mode of arrival: EMS - History of Present Illness Initial comments: This is a 59-year-old male the ER for evaluation. Patient accepted as a transfer patient for ST elevation [place]. Patient states he presented to outside hospital with chest pain and states his chest pain is now currently controlled. Patient does have medical history significant for diabetes hypertension high cholesterol heart disease. COPD. - Related Data Home Medications Medication Instructions Recorded Confirmed Atorvastatin Calcium [Lipitor] 40 mg PO HS 12/14/17 12/24/17 Carbidopa-Levodopa 25-100 mg 1 tab PO DAILY@1200 12/14/17 12/24/17 [Sinemet 25-100 mg] Carbidopa-Levodopa 25-100 mg 2 tab PO BID 12/14/17 12/24/17 [Sinemet 25-100 mg] Carvedilol [Coreg] 6.25 mg PO BID 12/14/17 12/24/17 Clopidogrel [Plavix] 75 mg PO DAILY 12/14/17 12/24/17 Gabapentin [Neurontin] 300 mg PO TID 12/14/17 12/24/17 Insulin NPH Hum/Reg Insulin Hm 60 unit SQ BID 12/14/17 12/24/17 [NovoLIN 70-30 100 UNIT/ML VIAL] Isosorbide Mononitrate ER [Imdur] 30 mg PO DAILY 12/14/17 12/24/17 Lisinopril [Zestril] 20 mg PO DAILY 12/14/17 12/24/17 Venlafaxine HCl ER [Effexor XR] 75 mg PO HS 12/14/17 12/24/17 Venlafaxine HCl ER [Effexor XR] 150 mg PO QAM 12/14/17 12/24/17 metFORMIN HCL 1,000 mg PO AC-BID 12/14/17 12/24/17 Hydrocodone/Acetaminophen [[place] 1 tab PO Q6HR PRN 12/24/17 12/24/17 5-325] Previous Rx's Medication Instructions Recorded sitaGLIPtin [Januvia] 100 mg PO DAILY #30 tab 12/18/17 Allergies Allergy/AdvReac Type Severity Reaction Status Date / Time No Known Allergies Allergy Verified 12/24/17 20:55 Review of Systems ROS Statement: Those systems with pertinent positive or pertinent negative responses have been documented in the HPI. ROS Other: All systems not noted in ROS Statement are negative. Past Medical History Past Medical History: Coronary Artery Disease (CAD), Heart Failure, COPD, Dementia, Diabetes Mellitus, Hearing Disorder / Deafness, Hypertension, Myocardial Infarction ([place]), Sleep Apnea/CPAP/BIPAP Additional Past Medical History / Comment(s): parkinsons Last Myocardial Infarction Date:: unk History of Any Multi-Drug Resistant Organisms: None Reported Past Surgical History: Coronary Bypass/CABG Past Psychological History: No Psychological Hx Reported Smoking Status: Current every day smoker Past Alcohol Use History: None Reported Past Drug Use History: None Reported - Past Family History Father Family Medical History: Hypertension General Exam General appearance: alert, in no apparent distress Head exam: Present: atraumatic, normocephalic, normal inspection Eye exam: Present: normal appearance, PERRL, EOMI. Absent: scleral icterus, conjunctival injection, periorbital swelling ENT exam: Present: normal exam, mucous membranes moist Neck exam: Present: normal inspection. Absent: tenderness, meningismus, lymphadenopathy Respiratory exam: Present: normal lung sounds bilaterally. Absent: respiratory distress, wheezes, rales, rhonchi, stridor Cardiovascular Exam: Present: regular rate, normal rhythm, normal heart sounds. Absent: systolic murmur, diastolic murmur, rubs, gallop, clicks GI/Abdominal exam: Present: soft, normal bowel sounds. Absent: distended, tenderness, guarding, rebound, rigid Extremities exam: Present: normal inspection, full ROM, normal capillary refill. Absent: tenderness, pedal edema, joint swelling, calf tenderness Back exam: Present: normal inspection Neurological exam: Present: alert, oriented X3, CN II-XII intact Psychiatric exam: Present: normal affect, normal mood Skin exam: Present: warm, dry, intact, normal color. Absent: rash Course Vital Signs 12/24/17 20:24 Pulse Rate 83 Respiratory 16 Rate Blood Pressure 161/73 O2 Sat by Pulse 100 Oximetry - Reevaluation(s) Reevaluation #1: [place] [facility] Operator seeing and evaluating patient in the emergency room Medical Decision Making - Medical Decision Making 59 male the ER for evaluation coming in with chest pain positive STEMI. Patient be admitted for cardiology treatment - Lab Data Result diagrams: 12/27/17 05:37 12/27/17 05:37 Lab Results 12/24/17 12/24/17 12/24/17 Range/Units 20:25 20:25 20:25 WBC 9.1 (3.8-10.6) k/uL RBC 4.39 (4.30-5.90) m/uL Hgb 13.4 (13.0-17.5) gm/dL Hct 39.8 (39.0-53.0) % MCV 90.6 (80.0-100.0) fL MCH 30.5 (25.0-35.0) pg MCHC 33.7 (31.0-37.0) g/dL RDW 13.8 (11.5-15.5) % Plt Count 504 H D (150-450) k/uL Neutrophils % 67 % Lymphocytes % 17 % Monocytes % 9 % Eosinophils % 2 % Basophils % 1 % Neutrophils # 6.1 (1.3-7.7) k/uL Lymphocytes # 1.5 (1.0-4.8) k/uL Monocytes # 0.9 (0-1.0) k/uL Eosinophils # 0.2 (0-0.7) k/uL Basophils # 0.1 (0-0.2) k/uL PT (9.0-12.0) sec INR (<1.2) APTT (22.0-30.0) sec D-Dimer (<0.60) mg/L FEU Sodium 134 L (137-145) mmol/L Potassium 4.3 (3.5-5.1) mmol/L Chloride 99 (98-107) mmol/L Carbon Dioxide 27 (22-30) mmol/L Anion Gap 8 mmol/L BUN 18 (9-20) mg/dL Creatinine 0.64 L (0.66-1.25) mg/dL Est GFR (CKD-EPI)AfAm >90 (>60 ml/min/1.73 sqM) Est GFR (CKD-EPI)NonAf >90 (>60 ml/min/1.73 sqM) Glucose 275 H (74-99) mg/dL POC Glucose (mg/dL) (75-99) mg/dL POC Glu Manager Utilities ID Calcium 8.6 (8.4-10.2) mg/dL Total Bilirubin 0.7 (0.2-1.3) mg/dL AST 24 (17-59) U/L ALT 30 (21-72) U/L Alkaline Phosphatase 90 (38-126) U/L Total Creatine Kinase 46 L (55-170) U/L CK-MB (CK-2) 1.6 (0.0-2.4) ng/mL CK-MB (CK-2) Rel Index 3.5 Troponin I 0.019 (0.000-0.034) ng/mL Total Protein 5.7 L (6.3-8.2) g/dL Albumin 2.8 L (3.5-5.0) g/dL 12/24/17 12/24/17 12/24/17 Range/Units 20:25 20:25 20:29 WBC (3.8-10.6) k/uL RBC (4.30-5.90) m/uL Hgb (13.0-17.5) gm/dL Hct (39.0-53.0) % MCV (80.0-100.0) fL MCH (25.0-35.0) pg MCHC (31.0-37.0) g/dL RDW (11.5-15.5) % Plt Count (150-450) k/uL Neutrophils % % Lymphocytes % % Monocytes % % Eosinophils % % Basophils % % Neutrophils # (1.3-7.7) k/uL Lymphocytes # (1.0-4.8) k/uL Monocytes # (0-1.0) k/uL Eosinophils # (0-0.7) k/uL Basophils # (0-0.2) k/uL PT 11.7 (9.0-12.0) sec INR 1.2 H (<1.2) APTT 54.2 H (22.0-30.0) sec D-Dimer 3.22 H (<0.60) mg/L FEU Sodium (137-145) mmol/L Potassium (3.5-5.1) mmol/L Chloride (98-107) mmol/L Carbon Dioxide (22-30) mmol/L Anion Gap mmol/L BUN (9-20) mg/dL Creatinine (0.66-1.25) mg/dL Est GFR (CKD-EPI)AfAm (>60 ml/min/1.73 sqM) Est GFR (CKD-EPI)NonAf (>60 ml/min/1.73 sqM) Glucose (74-99) mg/dL POC Glucose (mg/dL) 281 H (75-99) mg/dL POC Glu Manager Utilities Alix [place] Calcium (8.4-10.2) mg/dL Total Bilirubin (0.2-1.3) mg/dL AST (17-59) U/L ALT (21-72) U/L Alkaline Phosphatase (38-126) U/L Total Creatine Kinase (55-170) U/L CK-MB (CK-2) (0.0-2.4) ng/mL CK-MB (CK-2) Rel Index Troponin I (0.000-0.034) ng/mL Total Protein (6.3-8.2) g/dL Albumin (3.5-5.0) g/dL - Radiology Data Radiology results: report reviewed (Chest x-rays negative), image reviewed Critical Care Time Critical Care Time: Yes Total Critical Care Time: 31 Disposition Clinical Impression: Chest pain, ST elevation myocardial infarction (STEMI) Disposition: ADMITTED IP TO THIS HOSP Condition: Serious Is patient prescribed a controlled substance at d/c from ED?: No
[2017-12-24 20:41] LABS: Basophils # (A) 0.1 k/uL (0-0.2); Basophils % (A) 1 %; Eosinophils # (A) 0.2 k/uL (0-0.7); Eosinophils % (A) 2 %; HCT 39.8 % (39.0-53.0); HGB 13.4 gm/dL (13.0-17.5); Lymphocytes # (A) 1.5 k/uL (1.0-4.8); Lymphocytes % (A) 17 %; MCH 30.5 pg (25.0-35.0); MCHC 33.7 g/dL (31.0-37.0); MCV 90.6 fL (80.0-100.0); Mean Platelet Volume 6.8; Monocytes # (A) 0.9 k/uL (0-1.0); Monocytes % (A) 9 %; Neutrophils # (A) 6.1 k/uL (1.3-7.7); Neutrophils % (A) 67 %; RBC 4.39 m/uL (4.30-5.90); RDW 13.8 % (11.5-15.5); WBC 9.1 k/uL (3.8-10.6)
[2017-12-24 20:45] LABS: INR 1.2 (<1.2); Partial Thromboplastin Time 54.2 sec (22.0-30.0); Platelet Count 504 k/uL (150-450); Prothrombin Time 11.7 sec (9.0-12.0)
[2017-12-24 20:49] LABS: Glucose,Whole Blood 281 mg/dL (75-99)
[2017-12-24 20:51] LABS: ALT 30 U/L (21-72); AST 24 U/L (17-59); Albumin 2.8 g/dL (3.5-5.0); Alkaline Phosphatase 90 U/L (38-126); Anion Gap 8 mmol/L; Blood Urea Nitrogen 18 mg/dL (9-20); Calcium 8.6 mg/dL (8.4-10.2); Carbon Dioxide 27 mmol/L (22-30); Chloride 99 mmol/L (98-107); Glucose 275 mg/dL (74-99); Potassium 4.3 mmol/L (3.5-5.1); Sodium 134 mmol/L (137-145); Total Bilirubin 0.7 mg/dL (0.2-1.3); Total Protein 5.7 g/dL (6.3-8.2)
[2017-12-24] MEDS ORDERED: LIDOCAINE 1% INJ 10MG/ML (20 ML MDV) ONE (20:51)
[2017-12-24] MEDS ORDERED: MIDAZOLAM 2 MG/2 ML VIAL ONE (20:51)
[2017-12-24] MEDS ORDERED: MIDAZOLAM 2 MG/2 ML VIAL IVP ONE (20:54)
[2017-12-24] MEDS ORDERED: LIDOCAINE 1% INJ 10MG/ML (20 ML MDV) SQ ONE (20:57)
--- NOTE | 2017-12-24 20:57 | XR ---
EXAMINATION TYPE: XR chest 1V portable DATE OF EXAM: 12/24/2017 COMPARISON: 04/14/2012 HISTORY: Chest pain TECHNIQUE: Single frontal view of the chest is obtained. FINDINGS: There is mild patchy linear density in the left lower lobe. There is no heart failure. The re are sternal wires. Heart size is normal. Bony thorax is intact. IMPRESSION: Chronic density in the left lower lobe consistent with scarring that is similar to old e xam. No heart failure.
[2017-12-24] MEDS ORDERED: SODIUM CHLORIDE 0.9% 1,000 ML IV ONE (20:58)
[2017-12-24] MEDS ORDERED: METOPROLOL TARTRATE 25 MG TAB PO SCH (21:00)
--- NOTE | 2017-12-24 21:02 | P.CRDCN ---
History of Present Illness Consult reason: chest pain History of present illness: This is Dr. Aiken dictating a consult on this patient The patient was interviewed and examined by me at [facility] ER IMPRESSION / ASSESSMENT: Patient presenting with at least 15 minutes of chest discomfort with PVCs and associated ST segment elevations as compared to baseline ECG in the inferior leads and pseudonormalization of the ST segments and T-wave inversions in V4 V5 and V6 Recent hip arthroplasty about a week back Transferred from [facility] PVCs Known CAD status post coronary artery bypass grafting Diabetes Hypertension PLAN: Urgent coronary angiography. Discussed with Dr. Larsen Aspirin, atorvastatin HPI Patient was an [facility] with chest discomfort lasting about 15 minutes associated fluttering and documented PVCs When he arrived at [facility] he was pain-free. ECG showed ST segment elevations in the inferior leads that were definitely more prominent than his baseline from last week and upright ST-T segment in V4 V5 and V6 which is also different from last week. Apparently prior to his hip surgery he had had a stress test at [place] ROS: No fever chills or rigors, no cough, phlegm or expectoration, no nausea, vomiting or diarrhea, no hematuria, dysuria, no musculoskeletal complaints, no strokes or seizures, no skin lesions. 15 minutes of chest discomfort and fluttering in the chest EXAMINATION Blood pressures in the normal range heart rate in the 80s looks comfortable no respiratory distress No current bruits no JVD Heart sounds are normal no murmurs gallop or rub It sounds are reduced bilaterally with no rhonchi no crackles Minimal lower extremity edema REVIEW OF LABS, ECG ECG as above, sinus rhythm normal AR right bundle branch block pattern and expiration in the ST segments in the inferior leads and pseudonormalization of the ST-T segments in V4 V5 and V6 Past Medical History Past Medical History: Coronary Artery Disease (CAD), Heart Failure, COPD, Dementia, Diabetes Mellitus, Hearing Disorder / Deafness, Hypertension, Myocardial Infarction ([place]), Sleep Apnea/CPAP/BIPAP Additional Past Medical History / Comment(s): parkinsons Last Myocardial Infarction Date:: unk History of Any Multi-Drug Resistant Organisms: None Reported Past Surgical History: Coronary Bypass/CABG Past Psychological History: No Psychological Hx Reported Smoking Status: Current every day smoker Past Alcohol Use History: None Reported Past Drug Use History: None Reported - Past Family History Father Family Medical History: Hypertension Medications and Allergies Home Medications Medication Instructions Recorded Confirmed Type RX: Atorvastatin Calcium [Lipitor] 40 mg PO HS 12/14/17 12/24/17 History RX: Carbidopa-Levodopa 25-100 mg 1 tab PO DAILY@1200 12/14/17 12/24/17 History [Sinemet 25-100 mg] RX: Carbidopa-Levodopa 25-100 mg 2 tab PO BID 12/14/17 12/24/17 History [Sinemet 25-100 mg] RX: Carvedilol [Coreg] 6.25 mg PO BID 12/14/17 12/24/17 History RX: Clopidogrel [Plavix] 75 mg PO DAILY 12/14/17 12/24/17 History RX: Gabapentin [Neurontin] 300 mg PO TID 12/14/17 12/24/17 History RX: Insulin NPH Hum/Reg Insulin Hm 60 unit SQ BID 12/14/17 12/24/17 History [NovoLIN 70-30 100 UNIT/ML VIAL] RX: Isosorbide Mononitrate ER 30 mg PO DAILY 12/14/17 12/24/17 History [Imdur] RX: Lisinopril [Zestril] 20 mg PO DAILY 12/14/17 12/24/17 History RX: Venlafaxine HCl ER [Effexor XR] 75 mg PO HS 12/14/17 12/24/17 History RX: Venlafaxine HCl ER [Effexor XR] 150 mg PO QAM 12/14/17 12/24/17 History RX: metFORMIN HCL 1,000 mg PO AC-BID 12/14/17 12/24/17 History sitaGLIPtin [Januvia] 100 mg PO DAILY #30 tab 12/18/17 12/24/17 Rx Hydrocodone/Acetaminophen [[place] 1 tab PO Q6HR PRN 12/24/17 12/24/17 History 5-325] Allergies Allergy/AdvReac Type Severity Reaction Status Date / Time No Known Allergies Allergy Verified 12/24/17 20:55 Physical Exam Vitals: Vital Signs Pulse Resp BP Pulse Ox 12/24/17 20:24 83 16 161/73 100 Intake and Output 12/24/17 12/24/17 12/24/17 06:59 14:59 22:59 Other: Weight 107.955 kg Results 12/24/17 20:25 Coagulation 12/24/17 Range/Units 20:25 PT 11.7 (9.0-12.0) sec APTT 54.2 H (22.0-30.0) sec CBC 12/24/17 Range/Units 20:25 WBC 9.1 (3.8-10.6) k/uL RBC 4.39 (4.30-5.90) m/uL Hgb 13.4 (13.0-17.5) gm/dL Hct 39.8 (39.0-53.0) % Plt Count 504 H D (150-450) k/uL Current Medications Generic Name Dose Route Start Last Admin Trade Name Freq PRN Reason Stop Dose Admin Aspirin 325 mg 12/25/17 09:00 Aspirin PO DAILY [facility] Heparin Sodium (Porcine) 0 unit 12/24/17 20:36 Heparin IV Q6HR PRN Low PTT Protocol Heparin Sodium/Sodium Chloride 500 mls @ 20 mls/hr 12/24/17 20:45 25,000 unit/ Sodium Chloride IV .Q24H [facility] Protocol 9.264 UNITS/KG/HR Metoprolol Tartrate 25 mg 12/24/17 21:00 Lopressor PO BID [facility] Nitroglycerin 0.4 mg 12/24/17 20:36 Nitrostat SUBLINGUAL Q5M PRN Chest Pain Intake and Output 12/24/17 12/24/17 12/24/17 06:59 14:59 22:59 Other: Weight 107.955 kg Patient Weight 12/25/17 06:59 Weight 107.955 kg 12/24/17 20:25
[2017-12-24 21:12] LABS: Creatine Kinase MB 1.6 ng/mL (0.0-2.4); Troponin I 0.019 ng/mL (0.000-0.034)
[2017-12-24] MEDS ORDERED: IOPAMIDOL-370 125ML BTL INJ ONE (21:27)
[2017-12-24] MEDS ORDERED: IOPAMIDOL-370 50ML BTL INJ ONE (21:27)
[2017-12-24] MEDS ORDERED: RX INFO: IV CONTRAST WAS GIVEN 1 EACH MISC MISCELLANE PRN (21:33)
[2017-12-24] MEDS ORDERED: SODIUM CHLORIDE 0.9% 1,000 ML IV SCH (21:45)
--- NOTE | 2017-12-24 22:17 | CC ---
CARDIAC CATHETERIZATION REPORT DATE OF SERVICE: December 24, 2017 PERFORMING PHYSICIAN: Binu Larsen MD. PROCEDURE PERFORMED: 1. Selective left and right coronary angiogram. 2. GARCIA to LAD angiogram. 3. SVG to diagonal angiogram. 4. SVG to left circumflex angiogram. 5. SVG to RCA angiogram. 6. Left heart catheterization. INDICATION: This is a pleasant 67-year-old gentleman with known history of coronary artery disease and prior coronary artery bypass grafting where he received GARCIA to LAD, SVG to a SVG to OM, SVG to RCA, was brought to the hospital with chest discomfort and concerning about acute ST elevation myocardial infarction. The patient was seen and evaluated by Dr. Aiken, who recommended proceeding with a heart catheterization. APPROACH: Right common femoral artery. COMPLICATION: None. LEVEL OF SEDATION: Moderate with sedation length of 36 minutes. PROCEDURE DESCRIPTION: After obtaining an informed consent, the patient was brought to cardiac civil laboratory technician. The right common femoral artery was cannulated using micropuncture technique and a micropuncture wire passed easily. Then I placed a 6-[place] sheath in the right common femoral artery. After that, I did selective right and left coronary angiogram using JR4 and JL4 catheters. SVG angiogram to diagonal, OM, and RCA was performed using the JR4 catheter. GARCIA to LAD angiogram was performed with the JR4 catheter as well. Left heart catheterization was performed using the JR4 catheter which flipped into the LV then I did a pullback across aortic valve. The procedure was completed without any complication. SELECTIVE CORONARY ANGIOGRAM: 1. The left main is a large caliber vessel with mild disease only. It bifurcates into the circumflex and left anterior descending artery. 2. The left circumflex is a large caliber vessel. The proximal left circumflex appeared to have a lesion in the range of 70%. The mid AV groove left circumflex appeared to have mild disease only. The circumflex distally appeared to be occluded. The left circumflex gives rise into multiple OM branches appeared to be small caliber branches. 3. The LAD: The proximal LAD is occluded by the bifurcation of a medium-sized diagonal branch. 4. The RCA is 100% occluded in the proximal portion. CORONARY BYPASS ANGIOGRAM: 1. The GARCIA to LAD is patent. 2. The SVG to diagonal is patent. 3. The SVG to OM is patent. 4. The SVG to RCA is patent. HEMODYNAMICS: The left ventricular end-diastolic pressure was about 8 mmHg and no significant gradient was identified across aortic valve. CONCLUSION: 1. Severe morongo triple-vessel coronary artery disease as described above. 2. Patent GARCIA to LAD. 3. Patent SVG to diagonal. 4. Patent SVG to OM. 5. Patent SVG to RCA. POSTPROCEDURE MANAGEMENT: Giving the patency of all grafts, I recommended maximize medical treatment. The patient will be admitted to the hospital. Maximized medical treatment will be initiated including aspirin, high-intensity statin, as well as beta tim. MMODL / IJN: [id number] /
[2017-12-24] MEDS: HEPARIN SOD,PORK IN 0.45% NACL 25,000 UNIT in 0.45% NACL 1 500ML.BAG IV SCH (22:18)
[2017-12-24 22:27] LABS: Glucose,Whole Blood 281 mg/dL (75-99)
--- NOTE | 2017-12-24 23:56 | HP ---
HISTORY AND PHYSICAL DATE OF SERVICE: 12/24/2017 CHIEF COMPLAINT: Chest pain. HISTORY OF PRESENT ILLNESS: This 67-year-old gentleman with a past medical history of multiple medical problems, including CAD, CABG, history of CHF, COPD, dementia, diabetes mellitus, type 2, history of myocardial infarction, sleep apnea, being followed by Dr. Antonio Roberts in the outpatient setting, recently had a left hip replacement by Dr. Ospina. The patient was in rehab. Apparently patient had a flutter feeling in the chest and the patient was taken to [facility] and subsequently sent to [facility] for further evaluation and treatment. Acute [id number] myocardial infarction was suspected. The patient's troponin was 0.019. The patient underwent cardiac catheterization by Dr. Larsen which showed severe [place] triple-vessel disease and patent GARCIA to LAD, patent SVG to diagonal, patent SVG to OM, and patent SVG to RCA and the patient was admitted for further evaluation and treatment. Medical treatment was continued. There is no history of any fever, rigor or chills. No history of headache, loss of consciousness, seizures. PAST MEDICAL HISTORY: 1. History of CAD. 2. CABG. 3. History of CHF. 4. COPD. 5. Dementia. 6. Diabetes mellitus, type 2. 7. Hearing defect. 8. Hypertension. 9. Myocardial infarction. 10.Sleep apnea. 11.Nicotine dependence. HOME MEDICATIONS: 1. Carbidopa/levodopa 25/100 one p.o. daily. 2. Januvia 100 mg p.o. daily. 3. Metformin 1000 mg p.o. b.i.d. 4. Effexor XR 75 mg at bedtime and 150 mg each morning. 5. Zestril 20 mg p.o. daily. 6. Imdur ER 30 mg p.o. daily. 7. Novolin 70/30, 60 units subcutaneously b.i.d. 8. [place] 1 tablet q.6 p.r.n. 9. Neurontin 300 mg t.i.d. 10.Plavix 75 mg p.o. daily. 11.Coreg 6.25 mg p.o. b.i.d. 12.Carbidopa/levodopa 2 tablets p.o. b.i.d. 13.Lipitor 40 mg at bedtime. ALLERGIES: NONE. FAMILY HISTORY: History of hypertension in the family. SOCIAL HISTORY: History of smoking just prior to surgery. No history of alcohol intake. REVIEW OF SYSTEMS: ENT: Diminished hearing. Diminished vision. CARDIOVASCULAR SYSTEM: As mentioned earlier. RESPIRATORY SYSTEM: As mentioned earlier. GI: No nausea, vomiting. : No dysuria or retention. NERVOUS SYSTEM: No numbness, weakness. ALLERGY/IMMUNOLOGY: No asthma, hayfever. MUSCULOSKELETAL: As mentioned earlier. HEMATOLOGY/ONCOLOGY: No history of anemia. ENDOCRINE: Diabetes mellitus. CONSTITUTIONAL: As mentioned earlier. DERMATOLOGY: Negative. RHEUMATOLOGY: Negative. PSYCHIATRY: As mentioned earlier. PHYSICAL EXAMINATION: Patient is alert and oriented x3. Pulse 70, blood pressure 126/78, respiration 18, temperature 97.8, pulse ox 97% on 2 L. HEENT: Conjunctivae normal. Oral mucosa moist. NECK: No jugular venous distention. No carotid bruit. No lymph node enlargement. CARDIOVASCULAR SYSTEM: S1, S2 muffled. No S3. No S4. RESPIRATORY SYSTEM: Breath sounds diminished at the bases. A few rhonchi. No crackles. ABDOMEN: Soft and nontender. No mass palpable. LEGS: Status post left hip surgery recently. NERVOUS SYSTEM: Moves all 4 limbs. LYMPHATICS: No lymph node palpable in neck, axillae or groin. SKIN: No ulcer, rash, bleeding. LABS: WBC 9.1, hemoglobin 13.4. INR 1.2. Sodium 134. Glucose 281. ASSESSMENT: 1. Chest pain, possible unstable angina, status post cardiac catheterization; patent stents. 2. History of coronary artery disease, coronary artery bypass grafting. 3. Recent left hip total hip arthroplasty. 4. Diabetes mellitus, type 2. 5. Hyponatremia. 6. History of nicotine dependence. 7. History of congestive heart failure. 8. Chronic obstructive pulmonary disease. 9. Dementia. 10.History of hearing defect. 11.Hypertension. 12.History of myocardial infarction. 13.Sleep apnea. 14.Parkinson's. 15.FULL CODE. RECOMMENDATIONS AND DISCUSSION: In this 67-year-old gentleman who presented with multiple complex medical issues, we will monitor the patient closely, continue the current medications, continue with symptomatic treatment. I recommend resuming the home medications, antiplatelet agents, medical treatment. Follow closely. Follow with Cardiology. I would also obtain a D- dimer and continue to monitor. I would also recommend orthopedic evaluation. Guarded prognosis because of multiple complex medical issues. Further recommendations to follow. A copy of this dictation is being forwarded to Dr. Antonio Roberts, who is the primary physician. MMCHINEDUL / IJN: [id number] /
[2017-12-25 03:14] LABS: Basophils # (A) 0.1 k/uL (0-0.2); Basophils % (A) 1 %; Eosinophils # (A) 0.2 k/uL (0-0.7); Eosinophils % (A) 2 %; HCT 43.5 % (39.0-53.0); HGB 13.9 gm/dL (13.0-17.5); Lymphocytes # (A) 1.6 k/uL (1.0-4.8); Lymphocytes % (A) 19 %; MCHC 31.8 g/dL (31.0-37.0); MCV 94.1 fL (80.0-100.0); Mean Platelet Volume 6.6; Monocytes # (A) 0.8 k/uL (0-1.0); Monocytes % (A) 9 %; Neutrophils # (A) 5.7 k/uL (1.3-7.7); Neutrophils % (A) 65 %; Platelet Count 512 k/uL (150-450); RBC 4.63 m/uL (4.30-5.90); WBC 8.7 k/uL (3.8-10.6)
[2017-12-25 03:31] LABS: Anion Gap 10 mmol/L; Blood Urea Nitrogen 16 mg/dL (9-20); Calcium 8.9 mg/dL (8.4-10.2); Carbon Dioxide 24 mmol/L (22-30); Chloride 100 mmol/L (98-107); Cholesterol 124 mg/dL (<200); Glucose 277 mg/dL (74-99); HDL Cholesterol 26 mg/dL (40-60); LDL Cholesterol,Calculated 56 mg/dL (0-99); Potassium 4.5 mmol/L (3.5-5.1); Sodium 134 mmol/L (137-145); Triglycerides 210 mg/dL (<150)
[2017-12-25 03:48] LABS: Creatine Kinase MB 1.7 ng/mL (0.0-2.4); Troponin I 0.024 ng/mL (0.000-0.034)
[2017-12-25 06:16] LABS: Glucose,Whole Blood 325 mg/dL (75-99)
[2017-12-25] MEDS: INSULIN ASPART 100 UNIT/ML 1 ML 10 ML VIAL SQ SCH ×5 (06:24→21:28)
[2017-12-25] MEDS: CARVEDILOL 6.25 MG TAB PO SCH ×2 (06:30→17:43)
[2017-12-25] MEDS ORDERED: NON-FORMULARY DRUG (Metformin Hcl [Metformin Hcl] 1,000 MG) PO SCH (07:30)
--- NOTE | 2017-12-25 08:23 | US ---
EXAMINATION TYPE: US venous doppler duplex LE BI DATE OF EXAM: 12/25/2017 7:52 AM COMPARISON: NONE CLINICAL HISTORY: dvt. Patient states no leg pain, no swelling, no history of DVT, patient on blood t hinners, exam done portable. SIDE PERFORMED: Bilateral TECHNIQUE: The lower extremity deep venous system is examined utilizing real time linear array sonog argelia with graded compression, doppler sonography and color-flow sonography. VESSELS IMAGED: External Iliac Vein (EIV) Common Femoral Vein Deep Femoral Vein Greater Saphenous Vein * Femoral Vein Popliteal Vein Small Saphenous Vein * Proximal Calf Veins (* superficial vessels) Right Leg: Appears negative for DVT Left Leg: Appears negative for DVT IMPRESSION: 1. Bilateral lower extremity ultrasound negative for deep venous thrombosis.
[2017-12-25] MEDS ORDERED: INSULIN NPH/REG INSULIN 70/30 300 UNIT/3 ML VIAL SQ SCH (09:00)
[2017-12-25] MEDS ORDERED: ASPIRIN 325 MG TAB PO SCH (09:00)
[2017-12-25] MEDS: ASPIRIN 81 MG PO SCH (09:11)
[2017-12-25] MEDS: CARBIDOPA-LEVODOPA 25-100 MG 1 EACH TAB PO SCH ×3 (09:12→21:31)
[2017-12-25] MEDS: CLOPIDOGREL 75 MG TAB PO SCH (09:12)
[2017-12-25] MEDS: LISINOPRIL 20 MG TAB PO SCH (09:12)
[2017-12-25] MEDS: LINAGLIPTIN 5 MG TABLET PO SCH (09:12)
[2017-12-25] MEDS: ISOSORBIDE MONONITRATE ER 30 MG TAB.ER.24H PO SCH (09:12)
[2017-12-25] MEDS: GABAPENTIN 300 MG CAP PO SCH ×3 (09:12→21:29)
[2017-12-25] MEDS: NICOTINE 21MG/24HR PATCH TRANSDERM SCH (09:13)
[2017-12-25 09:33] LABS: Creatine Kinase MB 1.7 ng/mL (0.0-2.4); Troponin I 0.03 ng/mL (0.000-0.034)
[2017-12-25 11:25] LABS: Glucose,Whole Blood 305 mg/dL (75-99)
[2017-12-25] MEDS: VENLAFAXINE HCL ER 75 MG CAP PO SCH ×2 (11:25→21:30)
--- NOTE | 2017-12-25 13:43 | P.CNOR ---
History of Present Illness - [facility] Consult date: 12/25/17 Consult reason: other (Postop left total hip arthroplasty) History of present illness: The patient's a 67-year-old male who underwent a left anterior total hip arthroplasty about a week ago presents with chest pain/angina. He notes he was at a rehab facility using a walker. Denies significant hip pain. He denies fevers or chills. Review of Systems Constitutional: Reports as per HPI Past Medical History Past Medical History: Coronary Artery Disease (CAD), Heart Failure, COPD, Dementia, Diabetes Mellitus, Hearing Disorder / Deafness, Hypertension, Myocardial Infarction (MO), Sleep Apnea/CPAP/BIPAP Additional Past Medical History / Comment(s): parkinsons Last Myocardial Infarction Date:: unk History of Any Multi-Drug Resistant Organisms: None Reported Past Surgical History: Coronary Bypass/CABG Additional Past Surgical History / Comment(s): left hip replacement 12/19/17 Past Psychological History: No Psychological Hx Reported Smoking Status: Current every day smoker Past Alcohol Use History: None Reported Past Drug Use History: None Reported - Past Family History Father Family Medical History: Hypertension Medications and Allergies Home Medications Medication Instructions Recorded Confirmed Type Atorvastatin Calcium [Lipitor] 40 mg PO HS 12/14/17 12/24/17 History Carbidopa-Levodopa 25-100 mg 1 tab PO DAILY@1200 12/14/17 12/24/17 History [Sinemet 25-100 mg] Carbidopa-Levodopa 25-100 mg 2 tab PO BID 12/14/17 12/24/17 History [Sinemet 25-100 mg] Carvedilol [Coreg] 6.25 mg PO BID 12/14/17 12/24/17 History Clopidogrel [Plavix] 75 mg PO DAILY 12/14/17 12/24/17 History Gabapentin [Neurontin] 300 mg PO TID 12/14/17 12/24/17 History Insulin NPH Hum/Reg Insulin Hm 60 unit SQ BID 12/14/17 12/24/17 History [NovoLIN 70-30 100 UNIT/ML VIAL] Isosorbide Mononitrate ER [Imdur] 30 mg PO DAILY 12/14/17 12/24/17 History Lisinopril [Zestril] 20 mg PO DAILY 12/14/17 12/24/17 History Venlafaxine HCl ER [Effexor XR] 75 mg PO HS 12/14/17 12/24/17 History Venlafaxine HCl ER [Effexor XR] 150 mg PO QAM 12/14/17 12/24/17 History metFORMIN HCL 1,000 mg PO AC-BID 12/14/17 12/24/17 History sitaGLIPtin [Januvia] 100 mg PO DAILY #30 tab 12/18/17 12/24/17 Rx Hydrocodone/Acetaminophen [[place] 1 tab PO Q6HR PRN 12/24/17 12/24/17 History 5-325] Allergies Allergy/AdvReac Type Severity Reaction Status Date / Time No Known Allergies Allergy Verified 12/24/17 20:55 Physical Examination - Hip left Gait: other (Negative Krystina's bilaterally lower extremity, no significant lower extremity swelling) Tenderness with palpation: none Full ROM: yes (Mild limitation/painless) Results - Labs Labs: Abnormal Lab Results - Last 24 Hours (Table) 12/24/17 12/24/17 12/24/17 Range/Units 20:25 20:25 20:25 Plt Count 504 H D (150-450) k/uL INR (<1.2) APTT (22.0-30.0) sec D-Dimer (<0.60) mg/L FEU Sodium 134 L (137-145) mmol/L Creatinine 0.64 L (0.66-1.25) mg/dL Glucose 275 H (74-99) mg/dL POC Glucose (mg/dL) (75-99) mg/dL Total Creatine Kinase 46 L (55-170) U/L Total Protein 5.7 L (6.3-8.2) g/dL Albumin 2.8 L (3.5-5.0) g/dL Triglycerides (<150) mg/dL HDL Cholesterol (40-60) mg/dL 12/24/17 12/24/17 12/24/17 Range/Units 20:25 20:25 20:29 Plt Count (150-450) k/uL INR 1.2 H (<1.2) APTT 54.2 H (22.0-30.0) sec D-Dimer 3.22 H (<0.60) mg/L FEU Sodium (137-145) mmol/L Creatinine (0.66-1.25) mg/dL Glucose (74-99) mg/dL POC Glucose (mg/dL) 281 H (75-99) mg/dL Total Creatine Kinase (55-170) U/L Total Protein (6.3-8.2) g/dL Albumin (3.5-5.0) g/dL Triglycerides (<150) mg/dL HDL Cholesterol (40-60) mg/dL 12/24/17 12/25/17 12/25/17 Range/Units 22:15 02:39 02:39 Plt Count 512 H (150-450) k/uL INR (<1.2) APTT (22.0-30.0) sec D-Dimer (<0.60) mg/L FEU Sodium (137-145) mmol/L Creatinine (0.66-1.25) mg/dL Glucose (74-99) mg/dL POC Glucose (mg/dL) 281 H (75-99) mg/dL Total Creatine Kinase 46 L (55-170) U/L Total Protein (6.3-8.2) g/dL Albumin (3.5-5.0) g/dL Triglycerides (<150) mg/dL HDL Cholesterol (40-60) mg/dL 12/25/17 12/25/17 12/25/17 Range/Units 02:39 06:16 08:33 Plt Count (150-450) k/uL INR (<1.2) APTT (22.0-30.0) sec D-Dimer (<0.60) mg/L FEU Sodium 134 L (137-145) mmol/L Creatinine 0.54 L (0.66-1.25) mg/dL Glucose 277 H (74-99) mg/dL POC Glucose (mg/dL) 325 H (75-99) mg/dL Total Creatine Kinase 41 L (55-170) U/L Total Protein (6.3-8.2) g/dL Albumin (3.5-5.0) g/dL Triglycerides 210 H (<150) mg/dL HDL Cholesterol 26 L (40-60) mg/dL 12/25/17 Range/Units 11:11 Plt Count (150-450) k/uL INR (<1.2) APTT (22.0-30.0) sec D-Dimer (<0.60) mg/L FEU Sodium (137-145) mmol/L Creatinine (0.66-1.25) mg/dL Glucose (74-99) mg/dL POC Glucose (mg/dL) 305 H (75-99) mg/dL Total Creatine Kinase (55-170) U/L Total Protein (6.3-8.2) g/dL Albumin (3.5-5.0) g/dL Triglycerides (<150) mg/dL HDL Cholesterol (40-60) mg/dL H & H 12/24/17 12/25/17 Range/Units 20:25 02:39 Hgb 13.4 13.9 (13.0-17.5) gm/dL Hct 39.8 43.5 (39.0-53.0) % Coagulation 12/24/17 Range/Units 20:25 INR 1.2 H (<1.2) Result Diagrams: 12/25/17 02:39 12/25/17 02:39 Assessment and Plan Assessment: Status post left total hip arthroplastystable Anginahistory of coronary artery disease Plan: Doppler of both lower extremities were negative for DVT. I see no evidence of acute infectious process involving his left hip. He can weight-bear as tolerated with use of walker once medically stable. I recommend continuation of DVT prophylaxis. Follow-up with Dr. Ospina as scheduled in the next 1-2 weeks.
--- NOTE | 2017-12-25 13:54 | P.PN ---
Subjective Progress Note Date: 12/25/17 This is a pleasant 67-year-old gentleman who presented to the hospital with symptoms of chest discomfort. He was noted to have some changes on his EKG suggestive of possible ST elevation, he has a known history of coronary artery disease with prior bypass surgery, diabetes, hypertension, hyperlipidemia, he was taken urgently for cardiac catheterization. Cardiac catheterization revealed severe [place] triple-vessel coronary artery disease, patent GARCIA to the LAD, patent SVG to the diagonal, patent SVG to the OM, patent SVG to the RCA. Seen and examined this morning, denied any chest pain, breathing overall is stable blood pressure 142/50 with a heart rate in the 70s, 98% on 2 L of oxygen. White blood cell count 8.7, hemoglobin 13.9, platelet count 512. Sodium 134, potassium 4.5, BUN 16, creatinine 0.5. Objective - Vital Signs Vital signs: Vital Signs Temp 98 F 12/25/17 08:00 Pulse 82 12/25/17 08:00 Resp 18 12/25/17 08:00 BP 164/68 12/25/17 08:00 Pulse Ox 95 12/25/17 08:00 Intake & Output 12/24/17 12/25/17 12/25/17 18:59 06:59 18:59 Intake Total 580 240 Output Total 1200 Balance -620 240 Weight 90 kg Intake: IV 100 Oral 480 240 Output: Urine 1200 Other: Voiding Method Urinal Urinal # Voids 2 # Bowel Movements 0 - Exam PHYSICAL EXAMINATION: GENERAL: 67-year-old gentleman in no acute distress at the time of my examination HEENT: Head is atraumatic, normocephalic. Pupils equal, round. Sclera anicteric. Conjunctiva are clear. Mucous membranes of the mouth are moist. Neck is supple. There is no elevated jugular venous pressure.] bruit is heard. HEART EXAMINATION: Heart S1, S2 normal. No murmur or gallop heard. CHEST EXAMINATION: And circumflex clear with fine crackles to the bases posteriorly ABDOMEN: Soft, nontender. Bowel sounds are heard. No organomegaly noted. EXTREMITIES: 2+ peripheral pulses with no evidence of peripheral edema and no calf tenderness noted. Right groin soft no hematoma, significant scrotal swelling noted NEUROLOGIC patient is awake, alert and oriented ?-3. . - Labs CBC & Chem 7: 12/25/17 02:39 12/25/17 02:39 Labs: Abnormal Lab Results - Last 24 Hours (Table) 12/24/17 12/24/17 12/24/17 Range/Units 20:25 20:25 20:25 Plt Count 504 H D (150-450) k/uL INR (<1.2) APTT (22.0-30.0) sec D-Dimer (<0.60) mg/L FEU Sodium 134 L (137-145) mmol/L Creatinine 0.64 L (0.66-1.25) mg/dL Glucose 275 H (74-99) mg/dL POC Glucose (mg/dL) (75-99) mg/dL Total Creatine Kinase 46 L (55-170) U/L Total Protein 5.7 L (6.3-8.2) g/dL Albumin 2.8 L (3.5-5.0) g/dL Triglycerides (<150) mg/dL HDL Cholesterol (40-60) mg/dL 12/24/17 12/24/17 12/24/17 Range/Units 20:25 20:25 20:29 Plt Count (150-450) k/uL INR 1.2 H (<1.2) APTT 54.2 H (22.0-30.0) sec D-Dimer 3.22 H (<0.60) mg/L FEU Sodium (137-145) mmol/L Creatinine (0.66-1.25) mg/dL Glucose (74-99) mg/dL POC Glucose (mg/dL) 281 H (75-99) mg/dL Total Creatine Kinase (55-170) U/L Total Protein (6.3-8.2) g/dL Albumin (3.5-5.0) g/dL Triglycerides (<150) mg/dL HDL Cholesterol (40-60) mg/dL 12/24/17 12/25/17 12/25/17 Range/Units 22:15 02:39 02:39 Plt Count 512 H (150-450) k/uL INR (<1.2) APTT (22.0-30.0) sec D-Dimer (<0.60) mg/L FEU Sodium (137-145) mmol/L Creatinine (0.66-1.25) mg/dL Glucose (74-99) mg/dL POC Glucose (mg/dL) 281 H (75-99) mg/dL Total Creatine Kinase 46 L (55-170) U/L Total Protein (6.3-8.2) g/dL Albumin (3.5-5.0) g/dL Triglycerides (<150) mg/dL HDL Cholesterol (40-60) mg/dL 12/25/17 12/25/17 12/25/17 Range/Units 02:39 06:16 08:33 Plt Count (150-450) k/uL INR (<1.2) APTT (22.0-30.0) sec D-Dimer (<0.60) mg/L FEU Sodium 134 L (137-145) mmol/L Creatinine 0.54 L (0.66-1.25) mg/dL Glucose 277 H (74-99) mg/dL POC Glucose (mg/dL) 325 H (75-99) mg/dL Total Creatine Kinase 41 L (55-170) U/L Total Protein (6.3-8.2) g/dL Albumin (3.5-5.0) g/dL Triglycerides 210 H (<150) mg/dL HDL Cholesterol 26 L (40-60) mg/dL 12/25/17 Range/Units 11:11 Plt Count (150-450) k/uL INR (<1.2) APTT (22.0-30.0) sec D-Dimer (<0.60) mg/L FEU Sodium (137-145) mmol/L Creatinine (0.66-1.25) mg/dL Glucose (74-99) mg/dL POC Glucose (mg/dL) 305 H (75-99) mg/dL Total Creatine Kinase (55-170) U/L Total Protein (6.3-8.2) g/dL Albumin (3.5-5.0) g/dL Triglycerides (<150) mg/dL HDL Cholesterol (40-60) mg/dL Assessment and Plan Plan: Assessment and plan #1 chest pain with EKG changes, status post cardiac catheterization which did not reveal any significant obstructive coronary artery disease. #2 known history of coronary artery disease with prior bypass surgery #3 hypertension #4 hyperlipidemia #5 diabetes Plan From cardiology's perspective, patient may be able to be discharged home once cleared by primary. We will make him a follow-up appointment in the office post discharge. DNP note has been reviewed, I agree with a documented findings and plan of care. Patient was seen and examined.
--- NOTE | 2017-12-25 15:21 | PN ---
PROGRESS NOTE DATE OF SERVICE: 12/25/2017 This is a 67-year-old gentleman admitted with chest pain had a cardiac catheter , also the grafts were found to be patent. The patient also had a high D-dimer, awaiting CT angio to rule out possible pulmonary embolism. Patient also had hydrocele, right more than the left also. No chest pain. No palpitations. No fever. PHYSICAL EXAM: Alert and oriented x3. The pulse 92, blood pressure 162/80, respiration 18, temperature 98 degrees, pulse ox 92% on 2 L. HEENT: Conjunctivae normal. Oral mucosa moist. Neck is no jugular venous distension, no carotid bruit, no thyroid enlargement. CARDIOVASCULAR: S1, S2, muffled. RESPIRATION: Breath sounds diminished at the bases, a few scattered rhonchi. ABDOMEN: Soft, nontender. LEGS: Status post left hip surgery, hydrocele present. NERVOUS SYSTEM: No focal deficits. LABS: WBC 8.7, sodium 134, glucose 305. The platelets were 210. ASSESSMENT: 1. Chest pain, possible unstable angina. 2. Status post cardiac catheterization, patent grafts. 3. Coronary artery disease, coronary artery bypass grafting. 4. History of recent left hip total hip arthroplasty. 5. Hydrocele, right scrotum. 6. Diabetes mellitus type 2. 7. Hyponatremia. 8. Remote history of nicotine dependence. 9. History of congestive heart failure. 10.Chronic obstructive pulmonary disease. 11.Dementia. 12.History of hearing defects. 13.History of hypertension. 14.History of myocardial infarction. 15.History of sleep apnea. 16.Parkinson's. 17.FULL CODE. RECOMMENDATION: Recommend to continue current medication, continue to monitor, symptomatic treatment. Otherwise, as this time I recommend continue current medications and CT angio. Close follow up with Cardiology, monitor blood sugars closely. Increase the dose of insulin. Guarded prognosis because of multiple complex medical issues. Further recommendations to follow. MMODL / IJN: [id number] / [facility]omas
[2017-12-25 15:38] LABS: Hemoglobin A1C 10.9 % (4.0-6.0)
[2017-12-25 16:19] LABS: Glucose,Whole Blood 222 mg/dL (75-99)
[2017-12-25 21:23] LABS: Glucose,Whole Blood 220 mg/dL (75-99)
[2017-12-25] MEDS: INSULIN NPH/REG INSULIN 70/30 300 UNIT/3 ML VIAL SQ SCH (21:29)
[2017-12-25] MEDS: HEPARIN SOD,PORK IN 0.45% NACL 25,000 UNIT in 0.45% NACL 1 500ML.BAG IV SCH (21:42)
[2017-12-25] MEDS: ATORVASTATIN 40 MG TAB PO SCH (21:43)
--- NOTE | 2017-12-26 00:07 | CT ---
EXAMINATION TYPE: CT angio chest DATE OF EXAM: 12/25/2017 10:24 PM COMPARISON: None HISTORY: Elevated D-dimer. CT DLP: 294 mGycm Automated exposure control for dose reduction was used. CONTRAST: CTA scan of the thorax is performed with IV Contrast, patient injected with 63ml mL of Isovue 370, pu lmonary embolism protocol. There are 3-D post processed images.. FINDINGS: There is some patchy infiltrate and atelectasis in both lower lobes and more in the right lower lobe. There is small right pleural effusion. There is no pericardial effusion. There is no mediastinal adenopathy. There are no hilar masses. There is normal contrast opacification of the pulmonary arteries. I see no filling defect. Thoracic aorta is atheromatous. There is no evid ence of thoracic aortic aneurysm or dissection. There is spurring in the thoracic spine. There are st ernal wires. The bony thorax appears intact. IMPRESSION: THERE IS PATCHY INFILTRATE AND ATELECTASIS AT THE LUNG BASES WITH MILD RIGHT-SIDED PLEURAL THICKENING . NO EVIDENCE OF PULMONARY EMBOLISM.
[2017-12-26 06:21] LABS: Glucose,Whole Blood 66 mg/dL (75-99)
[2017-12-26] MEDS: INSULIN ASPART 100 UNIT/ML 1 ML 10 ML VIAL SQ SCH ×7 (06:32→21:18)
[2017-12-26] MEDS: CARVEDILOL 6.25 MG TAB PO SCH ×2 (06:33→17:19)
[2017-12-26 06:40] LABS: Basophils # (A) 0.1 k/uL (0-0.2); Basophils % (A) 1 %; Eosinophils # (A) 0.2 k/uL (0-0.7); Eosinophils % (A) 2 %; HCT 41.5 % (39.0-53.0); HGB 13.6 gm/dL (13.0-17.5); Lymphocytes # (A) 1.7 k/uL (1.0-4.8); Lymphocytes % (A) 14 %; MCH 29.9 pg (25.0-35.0); MCHC 32.8 g/dL (31.0-37.0); MCV 91.1 fL (80.0-100.0); Mean Platelet Volume 6.7; Monocytes # (A) 0.9 k/uL (0-1.0); Monocytes % (A) 8 %; Neutrophils # (A) 8.8 k/uL (1.3-7.7); Neutrophils % (A) 74 %; Platelet Count 536 k/uL (150-450); RBC 4.55 m/uL (4.30-5.90)
[2017-12-26 07:25] LABS: Glucose,Whole Blood 108 mg/dL (75-99)
[2017-12-26] MEDS: CLOPIDOGREL 75 MG TAB PO SCH (08:25)
[2017-12-26] MEDS: ASPIRIN 81 MG PO SCH (08:25)
[2017-12-26] MEDS: GABAPENTIN 300 MG CAP PO SCH ×3 (08:26→19:49)
[2017-12-26] MEDS: CARBIDOPA-LEVODOPA 25-100 MG 1 EACH TAB PO SCH ×3 (08:26→19:50)
[2017-12-26] MEDS: INSULIN NPH/REG INSULIN 70/30 300 UNIT/3 ML VIAL SQ SCH ×2 (08:26→21:18)
[2017-12-26] MEDS: ISOSORBIDE MONONITRATE ER 30 MG TAB.ER.24H PO SCH (08:26)
[2017-12-26] MEDS: LISINOPRIL 20 MG TAB PO SCH (08:27)
[2017-12-26] MEDS: NICOTINE 21MG/24HR PATCH TRANSDERM SCH (08:27)
[2017-12-26] MEDS: LINAGLIPTIN 5 MG TABLET PO SCH (08:27)
[2017-12-26] MEDS: VENLAFAXINE HCL ER 75 MG CAP PO SCH ×2 (08:27→19:48)
--- NOTE | 2017-12-26 09:51 | P.PN ---
Subjective Progress Note Date: 12/26/17 This is a pleasant 67-year-old gentleman who presented to the hospital with symptoms of chest discomfort. He was noted to have some changes on his EKG suggestive of possible ST elevation, he has a known history of coronary artery disease with prior bypass surgery, diabetes, hypertension, hyperlipidemia, he was taken urgently for cardiac catheterization. Cardiac catheterization revealed severe [place] triple-vessel coronary artery disease, patent GARCIA to the LAD, patent SVG to the diagonal, patent SVG to the OM, patent SVG to the RCA. Seen and examined this morning, denied any chest pain, breathing overall is stable blood pressure 142/50 with a heart rate in the 70s, 98% on 2 L of oxygen. White blood cell count 8.7, hemoglobin 13.9, platelet count 512. Sodium 134, potassium 4.5, BUN 16, creatinine 0.5. 12/26/2017 Patient seen and examined this morning, overall doing well. Denies any chest pain, breathing is stable. An orthopedic consultation was requested yesterday afternoon because the patient was complaining of some discomfort, and had a recent left total hip performed. Venous duplex study negative for DVT, no evidence of any acute infectious process. Stable from cardiology standpoint. Objective - Vital Signs Vital signs: Vital Signs Temp 98.2 F 12/26/17 08:00 Pulse 86 12/26/17 08:00 Resp 18 12/26/17 08:00 BP 123/62 12/26/17 08:00 Pulse Ox 96 12/26/17 08:00 Intake & Output 12/25/17 12/26/17 12/26/17 18:59 06:59 18:59 Intake Total 480 720 Output Total 1100 Balance -620 720 Weight 95 kg Intake: Oral 480 720 Output: Urine 1100 Other: Voiding Method Urinal Urinal # Voids 2 1 # Bowel Movements 0 0 - Exam PHYSICAL EXAMINATION: GENERAL: 67-year-old gentleman in no acute distress at the time of my examination HEENT: Head is atraumatic, normocephalic. Pupils equal, round. Sclera anicteric. Conjunctiva are clear. Mucous membranes of the mouth are moist. Neck is supple. There is no elevated jugular venous pressure.] bruit is heard. HEART EXAMINATION: Heart S1, S2 normal. No murmur or gallop heard. CHEST EXAMINATION: And circumflex clear with fine crackles to the bases posteriorly ABDOMEN: Soft, nontender. Bowel sounds are heard. No organomegaly noted. EXTREMITIES: 2+ peripheral pulses with no evidence of peripheral edema and no calf tenderness noted. Right groin soft no hematoma, significant scrotal swelling noted NEUROLOGIC patient is awake, alert and oriented ?-3. . - Labs CBC & Chem 7: 12/26/17 06:11 12/25/17 02:39 Labs: Abnormal Lab Results - Last 24 Hours (Table) 12/25/17 12/25/17 12/25/17 Range/Units 02:39 11:11 16:12 WBC (3.8-10.6) k/uL Plt Count (150-450) k/uL Neutrophils # (1.3-7.7) k/uL POC Glucose (mg/dL) 305 H 222 H (75-99) mg/dL Hemoglobin A1c 10.9 H (4.0-6.0) % 12/25/17 12/26/17 12/26/17 Range/Units 21:12 06:11 06:18 WBC 12.0 H (3.8-10.6) k/uL Plt Count 536 H (150-450) k/uL Neutrophils # 8.8 H (1.3-7.7) k/uL POC Glucose (mg/dL) 220 H 66 L (75-99) mg/dL Hemoglobin A1c (4.0-6.0) % 12/26/17 Range/Units 07:16 WBC (3.8-10.6) k/uL Plt Count (150-450) k/uL Neutrophils # (1.3-7.7) k/uL POC Glucose (mg/dL) 108 H (75-99) mg/dL Hemoglobin A1c (4.0-6.0) % Assessment and Plan Plan: Assessment and plan #1 chest pain with EKG changes, status post cardiac catheterization which did not reveal any significant obstructive coronary artery disease. #2 known history of coronary artery disease with prior bypass surgery #3 hypertension #4 hyperlipidemia #5 diabetes Plan From cardiology's perspective, patient may be able to be discharged home once cleared by primary. We will make him a follow-up appointment in the office post discharge. DNP note has been reviewed, I agree with a documented findings and plan of care. Patient was seen and examined.
[2017-12-26 12:19] LABS: Glucose,Whole Blood 212 mg/dL (75-99)
[2017-12-26] MEDS ORDERED: IPRATROPIUM-ALBUTEROL 3 ML NEB INHALATION PRN (13:25)
[2017-12-26] MEDS: PIPERACILLIN-TAZOBACTAM 3.375 GM in DEXTROSE/WATER 1 50ML.BAG IVPB SCH ×2 (14:30→23:14)
[2017-12-26 17:20] LABS: Glucose,Whole Blood 259 mg/dL (75-99)
[2017-12-26] MEDS: ATORVASTATIN 40 MG TAB PO SCH (19:47)
[2017-12-26] MEDS: HEPARIN SOD,PORK IN 0.45% NACL 25,000 UNIT in 0.45% NACL 1 500ML.BAG IV SCH (19:52)
[2017-12-26] MEDS: IPRATROPIUM-ALBUTEROL 3 ML NEB INHALATION SCH (19:54)
--- NOTE | 2017-12-26 20:31 | PN ---
PROGRESS NOTE DATE OF SERVICE: 12/26/2017 This 67-year-old gentleman the chest pain, possible unstable angina, also had cardiac catheterization. Patient also had a chest CTA which showed significant opacity in the left lower lung, possibly indicating either patchy infiltrate or atelectasis. There is no evidence of pulmonary embolism. PAST MEDICAL HISTORY: Reviewed. REVIEW OF SYSTEMS: CARDIOVASCULAR: No angina. RESPIRATORY: As mentioned earlier. GI: No nausea. : No dysuria. NERVOUS SYSTEM: No numbness or weakness. CURRENT MEDICATIONS: Reviewed and include: [place] 5 mg q.6h p.r.n., DuoNeb q.i.d. and p.r.n., Ecotrin 81 mg daily, Lipitor 40 mg daily, Sinemet 25/100 one p.o. daily, Coreg 6.25 mg b.i.d., Plavix 75 mg daily, Neurontin 10 mg, heparin subcu. Medications are reviewed. PHYSICAL EXAM: Patient is alert, oriented x2. Pulse is 66, blood pressure 109/76, respiration 18, temperature 98.6, pulse ox 94% on room air. HEENT: Conjunctivae normal. Oral mucosa moist. Neck is no jugular venous distention. No carotid bruit. No lymph node enlargement. CARDIOVASCULAR: S1, S2. RESPIRATORY: Breath sounds diminished in the bases. Scattered rhonchi and crackles. Expiratory wheezing also present. ABDOMEN: Soft, nontender. LEGS: No edema. NERVOUS SYSTEM: Diffusely weak. LAB STUDIES: WBC 12, glucose 259. ASSESSMENT: 1. Chest pain possible unstable angina. 2. Possible left lower lobe pneumonia possibly and gram-negative or aspiration. 3. Status post cardiac catheterization with patent grafts. 4. Coronary artery disease, CABG. 5. History of recent left total hip arthroplasty. 6. Hydrocele, right scrotum. 7. Diabetes mellitus type 2. 8. Hyponatremia. 9. Remote history of nicotine dependence. 10.History of congestive heart failure. 11.History of chronic obstructive pulmonary disease. 12.Dementia. 13.History of hearing defects. 14.History of hypertension. 15.History of myocardial infarction. 16.History of sleep apnea. 17.History of Parkinson's. 18.FULL CODE. RECOMMENDATION AND DISCUSSION: This 67-year-old gentleman who presented with multiple complex medical issues, we will monitor the patient closely. Continue the current management and symptomatic treatment. Otherwise at this time, I recommend continue with initiate broad-spectrum IV antibiotics. Add bronchodilators. Monitor blood sugars closely. Incentive spirometry. Guarded prognosis because of multiple complex medical issues. Further recommendations to follow. MMODL / IJN: [id number] /
[2017-12-26 21:13] LABS: Glucose,Whole Blood 252 mg/dL (75-99)
[2017-12-27 05:55] LABS: Glucose,Whole Blood 272 mg/dL (75-99)
[2017-12-27 06:38] LABS: Basophils # (A) 0.1 k/uL (0-0.2); Basophils % (A) 1 %; Eosinophils # (A) 0.2 k/uL (0-0.7); Eosinophils % (A) 2 %; HCT 39.9 % (39.0-53.0); HGB 12.5 gm/dL (13.0-17.5); Lymphocytes % (A) 19 %; MCH 29.3 pg (25.0-35.0); MCHC 31.5 g/dL (31.0-37.0); MCV 93.2 fL (80.0-100.0); Mean Platelet Volume 6.3; Monocytes # (A) 0.7 k/uL (0-1.0); Monocytes % (A) 6 %; Neutrophils # (A) 7.5 k/uL (1.3-7.7); Neutrophils % (A) 70 %; Platelet Count 551 k/uL (150-450); RBC 4.28 m/uL (4.30-5.90); WBC 10.6 k/uL (3.8-10.6)
[2017-12-27 06:52] LABS: Anion Gap 7 mmol/L; Blood Urea Nitrogen 13 mg/dL (9-20); Calcium 8.7 mg/dL (8.4-10.2); Carbon Dioxide 26 mmol/L (22-30); Chloride 103 mmol/L (98-107); Glucose 249 mg/dL (74-99); Potassium 4.5 mmol/L (3.5-5.1); Sodium 136 mmol/L (137-145)
[2017-12-27] MEDS: INSULIN ASPART 100 UNIT/ML 1 ML 10 ML VIAL SQ SCH ×7 (07:13→22:05)
[2017-12-27] MEDS: CARVEDILOL 6.25 MG TAB PO SCH ×2 (07:13→16:41)
[2017-12-27] MEDS: INSULIN NPH/REG INSULIN 70/30 300 UNIT/3 ML VIAL SQ SCH (07:49)
[2017-12-27] MEDS: CARBIDOPA-LEVODOPA 25-100 MG 1 EACH TAB PO SCH ×3 (07:49→20:46)
[2017-12-27] MEDS: ASPIRIN 81 MG PO SCH (07:49)
[2017-12-27] MEDS: GABAPENTIN 300 MG CAP PO SCH ×3 (07:49→20:46)
[2017-12-27] MEDS: CLOPIDOGREL 75 MG TAB PO SCH (07:49)
[2017-12-27] MEDS: LISINOPRIL 20 MG TAB PO SCH (07:51)
[2017-12-27] MEDS: VENLAFAXINE HCL ER 75 MG CAP PO SCH ×2 (07:51→20:46)
[2017-12-27] MEDS: NICOTINE 21MG/24HR PATCH TRANSDERM SCH ×2 (07:51→08:02)
[2017-12-27] MEDS: LINAGLIPTIN 5 MG TABLET PO SCH (07:51)
[2017-12-27] MEDS: ISOSORBIDE MONONITRATE ER 30 MG TAB.ER.24H PO SCH (07:51)
[2017-12-27] MEDS: IPRATROPIUM-ALBUTEROL 3 ML NEB INHALATION SCH ×3 (08:32→19:52)
[2017-12-27] MEDS: HYDROcodone/APAP 5-325MG 1 EACH TAB PO PRN ×2 (10:37→16:41)
[2017-12-27] MEDS: PIPERACILLIN-TAZOBACTAM 3.375 GM in DEXTROSE/WATER 1 50ML.BAG IVPB SCH ×3 (10:37→23:59)
[2017-12-27 11:43] LABS: Glucose,Whole Blood 252 mg/dL (75-99)
--- NOTE | 2017-12-27 12:14 | P.PN ---
Subjective Progress Note Date: 12/27/17 This is a pleasant 59-year-old gentleman who presented to the hospital with symptoms of chest discomfort. He was noted to have some EKG changes suggestive of possible ST elevation and has a known history of CAD with prior CABG in the past. Also has a history of hypertension, hyperlipidemia and diabetes. He was taken urgently for cardiac catheterization which revealed severe tetlin triple vessel CAD with patent GARCIA to LAD, patent SVG to the diagonal, patent SVG to the OM, and patent SVG to the RCA. Patient did have some complaints of discomfort at site of recent left total hip arthroplasty and oriented. Had been consulted. Venous duplex study was negative for DVT. From cardiac standpoint, patient is stable. Denies further complaints of chest discomfort. Objective - Vital Signs Vital signs: Vital Signs Temp 98.0 F 12/27/17 11:52 Pulse 81 12/27/17 11:52 Resp 18 12/27/17 11:52 BP 108/65 12/27/17 11:52 Pulse Ox 95 12/27/17 11:52 Intake & Output 12/26/17 12/27/17 12/27/17 18:59 06:59 18:59 Intake Total 1300 Output Total 1700 1650 Balance -1700 -350 Weight 95 kg Intake: Intake, IV Titration 50 Amount Piperacillin-Tazobactam 3 50 .375 gm In Dextrose/Water 1 50ml.bag @ 12.5 mls/hr IVPB Q8HR [facility] Rx#: [id number] Oral 1250 Output: Urine 1700 1650 Other: Voiding Method Urinal # Voids 1 1 # Bowel Movements 0 0 - Exam PHYSICAL EXAMINATION: HEENT: Head is atraumatic, normocephalic. Pupils equal, round. Neck is supple. There is no elevated jugular venous pressure. HEART EXAMINATION: Heart sounds regular, S1 and S2 normal. No murmur or gallop heard. CHEST EXAMINATION: Lungs are clear to auscultation and precussion. No chest wall tenderness is noted on palpation or with deep breathing. ABDOMEN: Soft, nontender. Bowel sounds are heard. No organomegaly noted. EXTREMITIES: 2+ peripheral pulses with no evidence of peripheral edema and no calf tenderness noted. Left anterior hip incision with dressing intact. Right femoral puncture site soft without evidence of ecchymosis or hematoma.. NEUROLOGIC patient is awake, alert and oriented x3. Short-term memory loss noted . - Labs CBC & Chem 7: 12/27/17 05:37 12/27/17 05:37 Labs: Abnormal Lab Results - Last 24 Hours (Table) 12/26/17 12/26/17 12/26/17 Range/Units 11:51 17:02 21:09 RBC (4.30-5.90) m/uL Hgb (13.0-17.5) gm/dL Plt Count (150-450) k/uL Sodium (137-145) mmol/L Creatinine (0.66-1.25) mg/dL Glucose (74-99) mg/dL POC Glucose (mg/dL) 212 H 259 H 252 H (75-99) mg/dL 12/27/17 12/27/17 12/27/17 Range/Units 05:37 05:37 05:49 RBC 4.28 L (4.30-5.90) m/uL Hgb 12.5 L (13.0-17.5) gm/dL Plt Count 551 H (150-450) k/uL Sodium 136 L (137-145) mmol/L Creatinine 0.65 L (0.66-1.25) mg/dL Glucose 249 H (74-99) mg/dL POC Glucose (mg/dL) 272 H (75-99) mg/dL 12/27/17 Range/Units 11:39 RBC (4.30-5.90) m/uL Hgb (13.0-17.5) gm/dL Plt Count (150-450) k/uL Sodium (137-145) mmol/L Creatinine (0.66-1.25) mg/dL Glucose (74-99) mg/dL POC Glucose (mg/dL) 252 H (75-99) mg/dL Assessment and Plan Assessment: #1 symptoms of chest discomfort with evidence of ST elevation IA, troponins are negative 3 and cardiac catheterization revealed patent bypass grafts #2 hypertension #3 hyperlipidemia Plan: From cardiology's perspective, patient is stable for discharge home. He will follow-up as an outpatient with his primary monorail operator. The above dictated assessment and findings were discussed with signing physician. The impression and plan of care have been directed as dictated. Vanita Andino, Nurse Practitioner, acting as scribe for signing physician.
[2017-12-27 17:35] LABS: Glucose,Whole Blood 99 mg/dL (75-99)
--- NOTE | 2017-12-27 18:05 | PN ---
PROGRESS NOTE DATE OF SERVICE: 12/27/2017. INTERVAL HISTORY: This 67-year-old gentleman who was admitted with chest pain also had a possible left lower pneumonia. The chest CTA shows no evidence of pulmonary embolism. No chest pain. No palpitations. No fever. EXAM: Alert and oriented times three. Pulse is 86. Blood pressure 140/59, respiration 18, temperature 97.2, pulse ox 98% on room air. HEENT: Conjunctivae normal. Neck: No jugular venous distention. Cardiovascular: S1, S2 muffled. Respirations: Breath sounds diminished in the bases. A few scattered rhonchi and crackles. Abdomen is soft, nontender. Central nervous system: No focal deficits. LAB STUDIES: WBC 11.1, hemoglobin 12.5, glucose 249. ASSESSMENT: 1. Chest pain possible unstable angina. 2. Possible acute left lower lobe pneumonia possibly gram-negative or aspiration. 3. Status post cardiac catheterization with patent grafts. 4. History of coronary artery disease, coronary artery bypass grafting. 5. History of recent left total hip arthroplasty. 6. Hydrocele of the right scrotum. 7. Diabetes mellitus type 2. 8. Hyponatremia. 9. Remote history of nicotine dependence. 10.History of congestive heart failure. 11.History of chronic obstructive pulmonary disease. 12.Dementia. 13.History hearing defects. 14.History of hypertension. 15.History of myocardial infarction. 16.History of sleep apnea. 17.History of Parkinson's. 18.FULL CODE. RECOMMENDATIONS AND DISCUSSION: Recommend to continue current medications, continue to monitor. Symptomatic treatment. Otherwise we will continue with monitoring blood sugars. I would increase the dose of insulin further for better control. Otherwise, continue with subcu b.i.d. and with 5 NovoLog with meals. Otherwise, we will continue to monitor with antibiotics and bronchodilators and probably will send the patient back to the ECF soon. The workup is basically completed as indicated above. Further recommendations to follow. The patient is stable. However, overall prognosis guarded because of the multiple medical issues. MMODL / IJN: [id number] / JONNY
[2017-12-27] MEDS: HEPARIN SOD,PORK IN 0.45% NACL 25,000 UNIT in 0.45% NACL 1 500ML.BAG IV SCH (20:27)
[2017-12-27 20:35] LABS: Glucose,Whole Blood 104 mg/dL (75-99)
[2017-12-27] MEDS: ATORVASTATIN 40 MG TAB PO SCH (20:46)
[2017-12-27] MEDS ORDERED: INSULIN NPH/REG INSULIN 70/30 300 UNIT/3 ML VIAL SQ SCH (21:00)
[2017-12-27] MEDS ORDERED: INSULIN NPH/REG INSULIN 70/30 300 UNIT/3 ML VIAL SQ ONE (23:45)
[2017-12-28 00:03] LABS: Glucose,Whole Blood 132 mg/dL (75-99)
[2017-12-28 01:57] LABS: Glucose,Whole Blood 101 mg/dL (75-99)
[2017-12-28 06:08] LABS: Glucose,Whole Blood 83 mg/dL (75-99)
[2017-12-28] MEDS: INSULIN ASPART 100 UNIT/ML 1 ML 10 ML VIAL SQ SCH ×7 (06:13→21:20)
[2017-12-28] MEDS: CARVEDILOL 6.25 MG TAB PO SCH ×2 (06:43→16:42)
[2017-12-28 08:03] LABS: Basophils # (A) 0.1 k/uL (0-0.2); Basophils % (A) 1 %; Eosinophils # (A) 0.3 k/uL (0-0.7); Eosinophils % (A) 2 %; HCT 40.2 % (39.0-53.0); HGB 12.4 gm/dL (13.0-17.5); Hypochromasia Slight; Lymphocytes # (A) 1.6 k/uL (1.0-4.8); Lymphocytes % (A) 15 %; MCHC 30.9 g/dL (31.0-37.0); MCV 93.8 fL (80.0-100.0); Mean Platelet Volume 6.6; Monocytes # (A) 0.7 k/uL (0-1.0); Monocytes % (A) 6 %; Neutrophils # (A) 7.8 k/uL (1.3-7.7); Neutrophils % (A) 74 %; Platelet Count 580 k/uL (150-450); RBC 4.29 m/uL (4.30-5.90); RDW 14.2 % (11.5-15.5); WBC 10.6 k/uL (3.8-10.6)
[2017-12-28] MEDS: IPRATROPIUM-ALBUTEROL 3 ML NEB INHALATION SCH ×3 (08:47→20:52)
[2017-12-28] MEDS: LISINOPRIL 20 MG TAB PO SCH (09:02)
[2017-12-28] MEDS: PIPERACILLIN-TAZOBACTAM 3.375 GM in DEXTROSE/WATER 1 50ML.BAG IVPB SCH ×3 (09:02→23:50)
[2017-12-28] MEDS: LINAGLIPTIN 5 MG TABLET PO SCH (09:03)
[2017-12-28] MEDS: ISOSORBIDE MONONITRATE ER 30 MG TAB.ER.24H PO SCH (09:03)
[2017-12-28] MEDS: ASPIRIN 81 MG PO SCH (09:03)
[2017-12-28] MEDS: GABAPENTIN 300 MG CAP PO SCH ×3 (09:03→19:34)
[2017-12-28] MEDS: CARBIDOPA-LEVODOPA 25-100 MG 1 EACH TAB PO SCH ×3 (09:03→19:35)
[2017-12-28] MEDS: CLOPIDOGREL 75 MG TAB PO SCH (09:04)
[2017-12-28] MEDS: VENLAFAXINE HCL ER 75 MG CAP PO SCH ×2 (09:04→19:35)
[2017-12-28] MEDS: NICOTINE 21MG/24HR PATCH TRANSDERM SCH (09:04)
[2017-12-28] MEDS: INSULIN NPH/REG INSULIN 70/30 300 UNIT/3 ML VIAL SQ SCH ×2 (09:08→21:29)
[2017-12-28 10:44] VITALS: BMI 30.3
[2017-12-28 11:49] LABS: Glucose,Whole Blood 168 mg/dL (75-99)
--- NOTE | 2017-12-28 12:00 | P.PN ---
Subjective Progress Note Date: 12/28/17 This is a pleasant 67-year-old gentleman who presented to the hospital with symptoms of chest discomfort. He was noted to have some changes on his EKG suggestive of possible ST elevation, he has a known history of coronary artery disease with prior bypass surgery, diabetes, hypertension, hyperlipidemia, he was taken urgently for cardiac catheterization. Cardiac catheterization revealed severe [place] triple-vessel coronary artery disease, patent GARCIA to the LAD, patent SVG to the diagonal, patent SVG to the OM, patent SVG to the RCA. Seen and examined this morning, denied any chest pain, breathing overall is stable blood pressure 142/50 with a heart rate in the 70s, 98% on 2 L of oxygen. White blood cell count 8.7, hemoglobin 13.9, platelet count 512. Sodium 134, potassium 4.5, BUN 16, creatinine 0.5. 12/26/2017 Patient seen and examined this morning, overall doing well. Denies any chest pain, breathing is stable. An orthopedic consultation was requested yesterday afternoon because the patient was complaining of some discomfort, and had a recent left total hip performed. Venous duplex study negative for DVT, no evidence of any acute infectious process. Stable from cardiology standpoint. 12/28/2017 Patient seen and examined this morning, denies any chest discomfort, breathing overall is stable. Insulin adjustments are still being made for the patient's blood sugars from cardiology standpoint he is remaining stable. We will follow him along with you now on an as-needed basis only, please don't hesitate to call with any questions Objective - Vital Signs Vital signs: Vital Signs Temp 97.3 F L 12/28/17 11:45 Pulse 81 12/28/17 11:45 Resp 16 12/28/17 11:45 BP 141/63 12/28/17 11:45 Pulse Ox 96 12/28/17 11:45 Intake & Output 12/27/17 12/28/17 12/28/17 18:59 06:59 18:59 Intake Total 760 Output Total 1250 800 Balance -1250 -40 Weight 101.5 kg 101.5 kg Intake: Oral 760 Output: Urine 1250 800 Other: Voiding Method Urinal Urinal # Voids 1 - Exam PHYSICAL EXAMINATION: GENERAL: 67-year-old gentleman in no acute distress at the time of my examination HEENT: Head is atraumatic, normocephalic. Pupils equal, round. Sclera anicteric. Conjunctiva are clear. Mucous membranes of the mouth are moist. Neck is supple. There is no elevated jugular venous pressure.] bruit is heard. HEART EXAMINATION: Heart S1, S2 normal. No murmur or gallop heard. CHEST EXAMINATION: And circumflex clear with fine crackles to the bases posteriorly ABDOMEN: Soft, nontender. Bowel sounds are heard. No organomegaly noted. EXTREMITIES: 2+ peripheral pulses with no evidence of peripheral edema and no calf tenderness noted. Right groin soft no hematoma, significant scrotal swelling noted NEUROLOGIC patient is awake, alert and oriented ?-3. . - Labs CBC & Chem 7: 12/28/17 06:39 12/27/17 05:37 Labs: Abnormal Lab Results - Last 24 Hours (Table) 12/27/17 12/28/17 12/28/17 Range/Units 20:33 00:02 01:54 RBC (4.30-5.90) m/uL Hgb (13.0-17.5) gm/dL MCHC (31.0-37.0) g/dL Plt Count (150-450) k/uL Neutrophils # (1.3-7.7) k/uL POC Glucose (mg/dL) 104 H 132 H 101 H (75-99) mg/dL 12/28/17 12/28/17 Range/Units 06:39 11:40 RBC 4.29 L (4.30-5.90) m/uL Hgb 12.4 L (13.0-17.5) gm/dL MCHC 30.9 L (31.0-37.0) g/dL Plt Count 580 H (150-450) k/uL Neutrophils # 7.8 H (1.3-7.7) k/uL POC Glucose (mg/dL) 168 H (75-99) mg/dL Assessment and Plan Plan: Assessment and plan #1 chest pain with EKG changes, status post cardiac catheterization which did not reveal any significant obstructive coronary artery disease. #2 known history of coronary artery disease with prior bypass surgery #3 hypertension #4 hyperlipidemia #5 diabetes Plan From cardiology's perspective, patient may be able to be discharged home once cleared by primary. We will make him a follow-up appointment in the office post discharge. We will follow him along with you now on an as-needed basis only, please don't hesitate to call with any questions. DNP note has been reviewed, I agree with a documented findings and plan of care. Patient was seen and examined.
--- NOTE | 2017-12-28 13:26 | CDI ---
Last Revision, February 2017 Documentation Clarification Form Date: 12/28/2017 1:11:28 PM From: Rose ChidlersMAZIN, CCDS Admit Date: 12/24/2017 8:37:00 PM Patient Name: Eddi Flores Visit Number: [id number] Discharge Date: ATTENTION: The Clinical Documentation Specialists (CDI) and [facility] Coding Staff appreciate your assistance in clarifying documentation. Please respond to the clarification below the line at the bottom and electronically sign. The CDI & [facility] Coding staff will review the response and follow-up if needed. Please note: Queries are made part of the Legal Health Record. If you have any questions, please contact the author of this message via ITS. Yaima Rojas MD: Per your progress notes: "Possible acute left lower lobe pneumonia possibly gram -negative or aspiration. Patient history/risk factors: CAD w/patent stents & bypass grafts, recent left MAUREEN, DM II, CHF, COPD, Hypertension, previous OK, Sleep apnea, dementia & Parkinson's. Former smoker. Clinical Indicators: Presented with chest pain, diagnosed with possible unstable angina. OK ruled out, PE ruled out. VS: T 97.8, P 83, R 16, BP 161/73, PO 100 2l nc Lab findings: WBC (9.1), Pl Ct 504^, INR 1.2^, D dimer 3.22^, Na 134*, Gluc 275^ Radiology findings: CXR: Chronic density in LLL: scarring, no heart failure. CT chest: PE ruled out. Patchy infiltrate & atelectasis at lung bases with mild right side pleural thickening. Treatment: IV antibiotics started on 12/26: IV Zosyn. IV heparin, Nitro sl, IV fluid 100, to laborer laboratory: LHC: patent coronary stents & grafts. In your professional opinion, can you please clarify the patient's pneumonia and specify the type if possible: Pneumonia o Ruled Out o Ruled In Present on admission? Specify type if known v Bacterial: specify organism if known v Aspiration (due to:) v Other, please specify v Unable to determine Pneumonia possibly gram negative bacteria MTDD
--- NOTE | 2017-12-28 16:58 | PN ---
PROGRESS NOTE DATE OF SERVICE: 12/28/2017 This 67-year-old gentleman who was admitted with chest pain, also had pneumonia. The patient is on broad-spectrum IV antibiotics. Currently, the patient feels the patient does not need any more rehab at this time. Patient is able to ambulate with assistance according to the staff. PHYSICAL EXAM: Alert and oriented x3. Pulse 81, blood pressure 141/60, respirations 16, temperature 97.2, pulse ox 98% on room air. HEENT: Conjunctivae normal. Oral mucosa moist. Neck is no jugular venous distention. No carotid bruit. No lymph node enlargement. Cardiovascular: S1, S2. RESPIRATORY: Breath sounds diminished in the bases. A few scattered rhonchi and rhonchi. ABDOMEN: Soft, nontender. Legs: Status post hip arthroplasty. Nervous system: No focal deficits. LABS: WBC 10.2, hemoglobin 12.4, sodium 136. ASSESSMENT: 1. Chest pain possible unstable angina, present on admission. 2. Possible acute left lower lobe pneumonia possibly gram-negative or aspiration. 3. Status post cardiac catheterization with patent grafts. 4. History of coronary artery disease, coronary artery bypass grafting. 5. History of recent left total hip arthroplasty. 6. Hydrocele of the right scrotum. 7. Diabetes mellitus type 2. 8. Hyponatremia. 9. Remote history of nicotine dependence. 10.History of congestive heart failure. 11.History of chronic obstructive pulmonary disease. 12.Dementia. 13.History of hearing defects. 14.History of hypertension. 15.History of myocardial infarction. 16.History of sleep apnea. 17.History of Parkinson's. 18.FULL CODE. RECOMMENDATIONS AND DISCUSSION: Recommend to continue current medications, management. Symptomatic treatment. Otherwise, at this time, I recommend continue the current medications, continue the antibiotics. Continue with the rest of medications including bronchodilators. PT/OT evaluation. Otherwise, the prognosis guarded because of multiple complex medical issues. Further recommendations to follow. MMODL / IJN: [id number] /
[2017-12-28 17:00] LABS: Glucose,Whole Blood 139 mg/dL (75-99)
[2017-12-28] MEDS: ATORVASTATIN 40 MG TAB PO SCH (19:34)
[2017-12-28] MEDS: HEPARIN SOD,PORK IN 0.45% NACL 25,000 UNIT in 0.45% NACL 1 500ML.BAG IV SCH (19:35)
[2017-12-28 19:47] VITALS: RESP 18
[2017-12-28 20:47] LABS: Glucose,Whole Blood 103 mg/dL (75-99)
[2017-12-29 01:26] LABS: Glucose,Whole Blood 50 mg/dL (75-99)
[2017-12-29] MEDS ORDERED: DEXTROSE 50%-WATER 50 ML SYRINGE IVP ONE (01:26)
[2017-12-29 02:15] LABS: Glucose,Whole Blood 96 mg/dL (75-99)
[2017-12-29 06:14] VITALS: PULSE 102
[2017-12-29] MEDS: INSULIN ASPART 100 UNIT/ML 1 ML 10 ML VIAL SQ SCH ×4 (06:15→12:47)
[2017-12-29] MEDS: CARVEDILOL 6.25 MG TAB PO SCH (06:17)
[2017-12-29 06:19] LABS: Glucose,Whole Blood 85 mg/dL (75-99)
[2017-12-29 07:26] LABS: Basophils # (A) 0.1 k/uL (0-0.2); Basophils % (A) 1 %; Eosinophils # (A) 0.2 k/uL (0-0.7); Eosinophils % (A) 2 %; HCT 43.1 % (39.0-53.0); HGB 13.6 gm/dL (13.0-17.5); Hypochromasia Slight; Lymphocytes % (A) 16 %; MCHC 31.6 g/dL (31.0-37.0); MCV 94.8 fL (80.0-100.0); Mean Platelet Volume 6.6; Monocytes # (A) 0.7 k/uL (0-1.0); Monocytes % (A) 5 %; Neutrophils # (A) 9.3 k/uL (1.3-7.7); Neutrophils % (A) 75 %; Platelet Count 700 k/uL (150-450); RBC 4.55 m/uL (4.30-5.90); RDW 14.2 % (11.5-15.5); WBC 12.4 k/uL (3.8-10.6)
[2017-12-29] MEDS: PIPERACILLIN-TAZOBACTAM 3.375 GM in DEXTROSE/WATER 1 50ML.BAG IVPB SCH ×2 (07:58→12:45)
[2017-12-29] MEDS: NICOTINE 21MG/24HR PATCH TRANSDERM SCH (07:58)
[2017-12-29] MEDS: ASPIRIN 81 MG PO SCH (07:59)
[2017-12-29] MEDS: GABAPENTIN 300 MG CAP PO SCH (07:59)
[2017-12-29] MEDS: LINAGLIPTIN 5 MG TABLET PO SCH (07:59)
[2017-12-29] MEDS: ISOSORBIDE MONONITRATE ER 30 MG TAB.ER.24H PO SCH (07:59)
[2017-12-29] MEDS: CARBIDOPA-LEVODOPA 25-100 MG 1 EACH TAB PO SCH ×2 (07:59→12:48)
[2017-12-29] MEDS: LISINOPRIL 20 MG TAB PO SCH (08:00)
[2017-12-29] MEDS: VENLAFAXINE HCL ER 75 MG CAP PO SCH (08:00)
[2017-12-29] MEDS: CLOPIDOGREL 75 MG TAB PO SCH (08:08)
[2017-12-29 08:59] VITALS: TEMP 98.7
[2017-12-29] MEDS ORDERED: INSULIN NPH/REG INSULIN 70/30 300 UNIT/3 ML VIAL SQ SCH (09:00)
[2017-12-29] MEDS: IPRATROPIUM-ALBUTEROL 3 ML NEB INHALATION SCH ×2 (09:33→13:56)
[2017-12-29 11:03] LABS: Glucose,Whole Blood 199 mg/dL (75-99)
[2017-12-29 11:19] LABS: Glucose,Whole Blood 163 mg/dL (75-99)
--- NOTE | 2017-12-29 11:57 | P.DS ---
Providers Date of admission: 12/24/17 20:37 Attending physician: Yaima Mcguire Consults: 12/24/17 20:36 Consult Physician Urgent Consulting Provider: Rudy Aiken Consult Reason/Comments: stemi Do you want consulting provider notified?: Already Contacted 12/24/17 23:14 Consult Physician Routine Consulting Provider: Matias Ospina Consult Reason/Comments: recent surgery Do you want consulting provider notified?: Yes Primary care physician: Antonio T Protestant Hospital Course: 67-year-old gentleman was admitted the secondary to chest pain, underwent cardiac catheterization which did not show any significant new coronary atherosclerotic occlusive disease patient is cleared for discharge. I extensively reviewed the CAT scans may suspicion for pneumonia is extremely low although there is a very mild infiltrate with very minimal air bronchogram in spite of my low suspicion for pneumonia since he is been already taking antibiotics I'll give him couple more times of antibiotics to complete the antibiotics therapy. Patient does have hydrocele which is not related to heart failure will need to follow up with surgery as an outpatient. PHYSICAL EXAMINATION: GENERAL: The patient is alert and oriented x3, not in any acute distress. Well developed, well nourished. HEENT: Pupils are round and equally reacting to light. EOMI. No scleral icterus. No conjunctival pallor. Normocephalic, atraumatic. No pharyngeal erythema. No thyromegaly. CARDIOVASCULAR: S1 and S2 present. No murmurs, rubs, or gallops. PULMONARY: Chest is clear to auscultation, no wheezing or crackles. ABDOMEN: Soft, nontender, nondistended, normoactive bowel sounds. No palpable organomegaly. MUSCULOSKELETAL: No joint swelling or deformity. EXTREMITIES: No cyanosis, clubbing, or pedal edema. NEUROLOGICAL: Gross neurological examination did not reveal any focal deficits. SKIN: No rashes. -Chest pain ruled out acute coronary syndromes status post cardiac catheterization as mentioned above probably musculoskeletal in nature no chest pain at this time -Low suspicion for left lower lobe pneumonia. -Carotid artery disease status post CABG in the past -Recent left hip arthroplasty -Hydrocele will need surgical evaluation and stent-type 2 diabetes mellitus -Hypertension -Parkinson's -Sleep apnea Patient Condition at Discharge: Serious Plan - Discharge Summary Discharge Rx Participant: No New Discharge Prescriptions: New Aspirin 81 mg PO DAILY chew Amoxicillin/Potassium Clav [Augmentin 500-125 Tablet] 1 tab PO Q12HR #6 tab Nicotine 21Mg/24Hr Patch [Habitrol] 1 each TRANSDERM DAILY #7 patch Albuterol Inhaler [Ventolin Hfa Inhaler] 1 - 2 puff INHALATION Q6HR PRN #1 inhaler PRN Reason: Shortness Of Breath Or Wheezing Continue Clopidogrel [Plavix] 75 mg PO DAILY Carvedilol [Coreg] 6.25 mg PO BID Atorvastatin Calcium [Lipitor] 40 mg PO HS metFORMIN HCL 1,000 mg PO AC-BID Venlafaxine HCl ER [Effexor XR] 150 mg PO QAM Venlafaxine HCl ER [Effexor XR] 75 mg PO HS Isosorbide Mononitrate ER [Imdur] 30 mg PO DAILY Carbidopa-Levodopa 25-100 mg [Sinemet 25-100 mg] 1 tab PO DAILY@1200 Carbidopa-Levodopa 25-100 mg [Sinemet 25-100 mg] 2 tab PO BID Lisinopril [Zestril] 20 mg PO DAILY Gabapentin [Neurontin] 300 mg PO TID Insulin NPH Hum/Reg Insulin Hm [NovoLIN 70-30 100 UNIT/ML VIAL] 60 unit SQ BID sitaGLIPtin [Januvia] 100 mg PO DAILY #30 tab Hydrocodone/Acetaminophen [Ironside 5-325] 1 tab PO Q6HR PRN PRN Reason: Pain Discharge Medication List Atorvastatin Calcium [Lipitor] 40 mg PO HS 12/14/17 [History] Carbidopa-Levodopa 25-100 mg [Sinemet 25-100 mg] 1 tab PO DAILY@1200 12/14/17 [ History] Carbidopa-Levodopa 25-100 mg [Sinemet 25-100 mg] 2 tab PO BID 12/14/17 [History] Carvedilol [Coreg] 6.25 mg PO BID 12/14/17 [History] Clopidogrel [Plavix] 75 mg PO DAILY 12/14/17 [History] Gabapentin [Neurontin] 300 mg PO TID 12/14/17 [History] Insulin NPH Hum/Reg Insulin Hm [NovoLIN 70-30 100 UNIT/ML VIAL] 60 unit SQ BID 12/14/17 [History] Isosorbide Mononitrate ER [Imdur] 30 mg PO DAILY 12/14/17 [History] Lisinopril [Zestril] 20 mg PO DAILY 12/14/17 [History] Venlafaxine HCl ER [Effexor XR] 75 mg PO HS 12/14/17 [History] Venlafaxine HCl ER [Effexor XR] 150 mg PO QAM 12/14/17 [History] metFORMIN HCL 1,000 mg PO AC-BID 12/14/17 [History] sitaGLIPtin [Januvia] 100 mg PO DAILY #30 tab 12/18/17 [Rx] Hydrocodone/Acetaminophen [Ironside 5-325] 1 tab PO Q6HR PRN 12/24/17 [History] Albuterol Inhaler [Ventolin Hfa Inhaler] 1 - 2 puff INHALATION Q6HR PRN #1 inhaler 12/29/17 [Rx] Amoxicillin/Potassium Clav [Augmentin 500-125 Tablet] 1 tab PO Q12HR #6 tab 05/17 [Rx] Aspirin 81 mg PO DAILY chew 12/29/17 [Rx] Nicotine 21Mg/24Hr Patch [Habitrol] 1 each TRANSDERM DAILY #7 patch 12/29/17 [Rx ] Follow up Appointment(s)/Referral(s): Rudy Aiken MD [STAFF PHYSICIAN] - 01/06/18 11:30 am () Antonio Roberts DO [Primary Care Provider] - 01/04/18 8:30 am (Thursday) Antoine Art MD [STAFF PHYSICIAN] - 1 Week [facility], [NON-STAFF] - As Needed Patient Instructions/Handouts: Heart Attack (DC), Heart Healthy Diet (DC) Discharge Disposition: HOME WITH HOME HEALTH SERVICES
[2017-12-29 12:42] VITALS: BP 125/78
== END 2017-12-29 16:16 | disposition home health service (06) | DRG 286 ==
LOC: EC 20:22 → 6ICU 20:37 → 6SEL 21:44
PROVIDERS: ADMIT Hospitalist; ATTEND Hospitalist
PROC: B2111ZZ Fluoroscopy of Multiple Coronary Arteries using Low Osmolar Contrast (ICD-10-PCS; 2017-12-24)
PROC: B2151ZZ Fluoroscopy of Left Heart using Low Osmolar Contrast (ICD-10-PCS; 2017-12-24)
PROC: B2131ZZ Fluoroscopy of Multiple Coronary Artery Bypass Grafts using Low Osmolar Contrast (ICD-10-PCS; 2017-12-24)
PROC: 4A023N6 Measurement of Cardiac Sampling and Pressure, Right Heart, Percutaneous Approach (ICD-10-PCS; principal; 2017-12-24 20:36)
DX: R07.89 Other chest pain (principal); J15.6 Pneumonia due to other Gram-negative bacteria; E87.1 Hypo-osmolality and hyponatremia; J44.0 Chronic obstructive pulmonary disease with (acute) lower respiratory infection; I25.10 Atherosclerotic heart disease of native coronary artery without angina pectoris; I11.0 Hypertensive heart disease with heart failure; I50.9 Heart failure, unspecified; I25.82 Chronic total occlusion of coronary artery; F17.210 Nicotine dependence, cigarettes, uncomplicated; Z95.1 Presence of aortocoronary bypass graft; E11.9 Type 2 diabetes mellitus without complications; E78.00 Pure hypercholesterolemia, unspecified; F03.90 Unspecified dementia, unspecified severity, without behavioral disturbance, psychotic disturbance, mood disturbance, and anxiety; F17.200 Nicotine dependence, unspecified, uncomplicated; G20 Parkinson's disease; G47.30 Sleep apnea, unspecified; H91.90 Unspecified hearing loss, unspecified ear; N43.3 Hydrocele, unspecified; I25.119 Atherosclerotic heart disease of native coronary artery with unspecified angina pectoris; I25.2 Old myocardial infarction; I49.3 Ventricular premature depolarization; Z79.02 Long term (current) use of antithrombotics/antiplatelets; Z79.4 Long term (current) use of insulin; Z79.899 Other long term (current) drug therapy; Z82.49 Family history of ischemic heart disease and other diseases of the circulatory system; Z96.642 Presence of left artificial hip joint
CPT/HCPCS: 36415; 71045; 71275; 80048; 80053; 80061; 82550; 82553; 83036; 84484; 85025; 85379; 85610; 85730; 93459; 93970; 94640; 99285